=== PATIENT | female | born 1965 | race Caucasian/White ===

== ENCOUNTER 2019-06-08 10:37 | Outpatient (CLI) | payer OTHER, SELFPAY ==
[2019-06-08 17:15] LABS: Basophils Percent Auto 0.4 % (0.2-1.2); Eosinophils Absolute Auto 0.4 K/mm3 (0-0.3); Eosinophils Percent Auto 5.6 % (0-4.4); Hematocrit 47.2 % (37.0-47.0); Hemoglobin 15.1 g/dL (12.0-15.0); Immature Granulocyte Absolute 0.01 K/mm3 (0.00-0.031); Immature Granulocyte Percent A 0.1 % (0-0.5); Lymphocytes Percent Auto 36.1 % (18.3-44.2); Mean Corpuscular Volume 96.9 fl (80-100); Mean Platelet Volume 9.8 fl (7.4-10.4); Monocytes Absolute Auto 0.4 K/mm3 (0.1-0.6); Monocytes Percent Auto 6.3 % (2.6-8.5); Neutrophils Absolute Auto 3.6 K/mm3 (1.3-6.7); Neutrophils Percent Auto 51.5 % (45.5-73.1); Platelet Count Result 293 k/mm3 (150-375); Red Blood Count 4.87 M/mm3 (4.2-5.4); Red Cell Distribution Width 12.5 % (11.5-14.5); White Blood Count 6.9 K/mm3 (4.5-10.0)
== END 2019-06-08 10:38 | disposition home or self-care (01) ==
PROVIDERS: PCP Family Medicine; Visit Provider Family Medicine
DX: Z01.818 Encounter for other preprocedural examination (principal); Z79.899 Other long term (current) drug therapy
CPT/HCPCS: 36415; 85025

== ENCOUNTER 2022-03-12 13:17 | Emergency (ER) | payer OTHER, SELFPAY ==
[2022-03-12 13:33] VITALS: BP 122/75; PULSE 73; RESP 16; TEMP 36.8; O2SAT 99
--- NOTE | 2022-03-12 15:48 | ED.URI ---
HPI - URI/Sore Throat General Chief Complaint: Upper Respiratory Infection Stated Complaint: cold/flu Time Seen by Provider: 03/12/22 15:40 Source: patient, family, RN notes reviewed and old records reviewed Mode of arrival: wheelchair Limitations: no limitations History of Present Illness HPI Narrative: 56 year old female accompanied by spouse presents to express care with complaints of productive cough for the past 10 days of thick yellow phlegm. Patient reports that it feels like she just can't breathe. Patient has long history of tobacco abuse of 1 ppd for the past 30 years. Patient has had previous CVA with right sided weakness.She reports that she has been taking Danii Dysart Plus for her symptoms.Patient reports that she has not had any fevers. MD elicited complaint: cough, rhinorrhea and nasal congestion Pertinent past history: other (tobacco abuse) Onset (ago): day(s) (10) Able to tolerate fluids by mouth: Yes Treatments prior to arrival: cold medicine Related Data Allergies Allergy/AdvReac Type Severity Reaction Status Date / Time hydromorphone Allergy Intermediate rash Verified 03/12/22 14:23 morphine Allergy Intermediate rash Verified 03/12/22 14:23 ibuprofen Allergy Nausea Verified 03/12/22 14:23 naproxen Allergy Nausea Verified 03/12/22 14:23 tramadol Allergy Nausea Verified 03/12/22 14:23 Review of Systems Review of Systems: CONSTITUTIONAL: Denies malaise, chills, sweats, or fever. EYES: Denies visual changes, redness, or discharge. ENT: Reports rhinorrhea, congestion, sinus pain,no otalgia or sore throat. CARDIOVASCULAR: Denies chest pain, palpitations, or edema. RESPIRATORY: Reports cough.? Reports some dyspnea. GASTROINTESTINAL: Denies abdominal pain, nausea, vomiting, diarrhea SKIN: Denies rash or itching. MUSCULOSKELETAL: Denies myalgia. NEUROLOGIC: Denies headache. All systems reviewed & are unremarkable except as noted in HPI and below PMFSH Past Medical History Medical History (Updated 03/13/22 @ 00:00 by Background [place]) Allergies Anxiety Bilateral carpal tunnel syndrome PTSD (post-traumatic stress disorder) RSD (reflex sympathetic dystrophy) Surgical History Surgical History (Updated 10/21/21 @ 14:04 by Agnelito Robles MD) H/O section H/O shoulder surgery History of cholecystectomy Family History Family History Mother Diabetes mellitus Father COPD (chronic obstructive pulmonary disease) Emphysema lung Social History Social History (Updated 10/26/21 @ 07:20 by Hiral Boyd MA) Years smoked: 30 Smoking status: Current every day smoker Alcohol intake: current Drinks per week: 2 Alcohol use details: Yoder Substance use: never Substance use type: does not use Gender identity (if verbalized by the patient): Female Agree to blood products: Yes Comments At time of signature, agree with nursing past medical, surgical, social and family history. There is no relevant family history pertinent to the presenting complaint Exam Narrative: GENERAL:Chronic ill-appearing, well-nourished, and in no acute distress.Right sided weakness post CVA HEAD: Normocephalic EYES: PERRLA, conjunctivae clear ENT: Nares clear, turbinates edematous and erythematous, clear to yellow tinged discharge. Mucous membranes moist. TM pearly valente with dull light reflex bilaterally; no tragal tenderness. Oropharynx erythematous without lesions. Tonsils not enlarged and without exudate, no drooling, no hoarseness, no trismus, uvula midline. NECK: Supple. No lymphadenopathy CHEST: Scattered wheezing on auscultation, breath sounds equal. scattered wheezing,no rhonchi, rales, or stridor. No respiratory distress, speaks in full sentences.productive cough of yellow thick phlegm, SAO2 99% on room air HEART: Regular rate and rhythm. No murmur heard. SKIN: Warm, dry, no rash. NEURO: Alert and oriented x
== END 2022-03-12 16:06 | disposition home or self-care (01) ==
PROVIDERS: Emergency Provider Registered Nurse; PCP Family Medicine
DX: J06.9 Acute upper respiratory infection, unspecified (principal); F17.210 Nicotine dependence, cigarettes, uncomplicated
CPT/HCPCS: 99213; G0463

== ENCOUNTER 2022-08-27 08:50 | Outpatient (CLI) | payer OTHER, SELFPAY ==
--- NOTE | ~2022-08-27 | US_ITS ---
EXAMINATION: US venous doppler LE RT DATE: 08/27/2022 09:33 INDICATION: Right lower limb swelling. Other specified soft tissue disorders. TECHNIQUE: Grayscale ultrasound images without and with compression and Doppler ultrasound images of the right lower extremity veins were obtained. COMPARISON: None. FINDINGS: The visualized portions of right common femoral vein, profunda (deep) femoral vein, femoral vein, pop liteal vein, peroneal veins, posterior tibial veins, and greater saphenous vein outflow are patent. IMPRESSION: 1. No deep venous thrombosis. Reviewed, dictated and finalized at location A.
== END 2022-08-27 08:51 | disposition home or self-care (01) ==
PROVIDERS: PCP Family Medicine; Visit Provider Nurse Practitioner
DX: M79.89 Other specified soft tissue disorders (principal)
CPT/HCPCS: 93971

== ENCOUNTER 2022-10-08 09:10 | Outpatient (CLI) | payer OTHER, SELFPAY ==
--- NOTE | ~2022-10-08 | CT_ITS ---
CT Scan of the Chest without Contrast: Clinical Indication: Lung cancer screening, 40 pack-year smoking history Technique: Contiguous sections were acquired throughout the chest without intravenous contrast. Dose reduction technique was used on this scan by utilizing automated exposure control and iterative recon struction technique. The dose-length product (DLP) was 92.94 mGy-cm. Findings: There is no evidence of any significant mediastinal, hilar or axillary lymphadenopathy. Coronary jason ry calcifications are present. There is no evidence of pleural or pericardial effusion. Severe emphysema present. No pulmonary nodule identified. Images through the upper abdomen reveal no abnormalities. Impression: Lung RADS 1: Negative. 12 month follow-up screening CT advised. Severe emphysema. Reviewed, dictated and finalized at location . Impression: Lung RADS 1: Negative. 12 month follow-up screening CT advised. Severe emphysema.
== END 2022-10-08 09:11 | disposition home or self-care (01) ==
PROVIDERS: PCP Family Medicine; Visit Provider Family Medicine
DX: Z12.2 Encounter for screening for malignant neoplasm of respiratory organs (principal); F17.210 Nicotine dependence, cigarettes, uncomplicated
CPT/HCPCS: 71271

== ENCOUNTER 2022-10-23 17:42 | Emergency (ER) | payer OTHER, SELFPAY ==
--- NOTE | ~2022-10-23 | XR_ITS ---
EXAMINATION: XR knee RT min 4V DATE: 10/23/2022 19:16 INDICATION: Right knee injury. TECHNIQUE: 4 views of right knee were obtained. COMPARISON: None. FINDINGS: Bone alignment is normal. There is a nondisplaced fracture of medial femoral metaphysis. Th ere is mild tricompartmental osteoarthritis characterized by tiny osteophytes. No joint space narrowi ng. There is a large lipohemarthrosis. IMPRESSION: 1. Nondisplaced fracture of medial femoral metaphysis. 2. Large lipohemarthrosis. 3. Mild right knee osteoarthritis. Reviewed, dictated and finalized at location E.
[2022-10-23 18:25] VITALS: BP 111/64; PULSE 86; RESP 18; TEMP 36.1; O2SAT 100
[2022-10-23 20:15] VITALS: BP 107/69; PULSE 93; RESP 16; TEMP 36.6; O2SAT 98
[2022-10-23] MEDS: HYDROcodone/acetaminophen (*CRX) 5-325 MG TABLET 1 TAB PO (20:56)
--- NOTE | 2022-10-23 21:14 | ED_ITS ---
Respiratory Rate 18 10/23/22 18:25 Blood Pressure 111/64 10/23/22 18:25 Pulse Oximetry 100 10/23/22 18:25 Oxygen Delivery Room Air 10/23/22 18:25 Temperature 98 F 10/23/22 20:15 Pulse Rate 93 10/23/22 20:15 Respiratory Rate 16 10/23/22 20:15 Blood Pressure 107/69 10/23/22 20:15 Pulse Oximetry 98 10/23/22 20:15 Oxygen Delivery Room Air 10/23/22 18:25 Procedures Orthopedic Splinting/Casting Injury #1: Splinting/Casting Date: 10/23/22 Side: right Lower Extremity Injury Location: knee Lower Extremity Immobilizer: knee immobilizer Splint: prefabricated Pre-Formed: knee immobilizer Pre-Procedure Neuro Vascular Exam: normal Post-Procedure Neuro Vascular Exam: normal MDM - Extremity Injury (Lower) MDM Narrative Medical decision making narrative: Patient presents to the emergency department for right knee injury sustained just prior to arrival. Patient is neurovascularly intact at her baseline. She does have history of paralysis of this leg due to her previous stroke. Right knee x-ray shows a nondisplaced fracture of the medial femoral metaphysis. Large lipohemarthrosis. Mild right knee osteoarthritis. Spoke with Dr. Liu about patient and workup who will follow up in clinic. Patient will be placed in knee immobilizer. Patient and family updated on work-up and agree with plan of care. She was given warnings to return to the ER Differential Diagnosis Differential diagnosis: Likely acute internal derangement of knee and fracture of femur Imaging Data Radiologist's impression: ITS Impressions Knee X-Ray 10/23/22 19:27 IMPRESSION: 1. Nondisplaced fracture of medial femoral metaphysis. 2. Large lipohemarthrosis. 3. Mild right knee osteoarthritis. Critical Care Time Critical Care Time Critical Care Time: No Discharge Plan Discharge Clinical Impression: Closed right femoral fracture Qualifiers: Encounter type: initial encounter Femur location: distal, unspecified portion Fracture morphology: unspecified fracture morphology Qualified Code(s): S72.401A - Unspecified fracture of lower end of right femur, initial encounter for closed fracture Patient Disposition: Home, Self-Care Condition: Stable Instructions: Leg Fracture (ED) Additional Instructions: Return to the ER if you experience fever, redness and swelling of your extremity, numbness or any other symptoms that are concerning to you Wear knee immobilizer.. No weight on the affected leg. Ice and elevate extremity. Pain medication as needed and directed. Follow up with orthopedics for further care. Prescriptions: New hydrocodone-acetaminophen 5-325 mg tablet 1 tablet PO Q8H PRN (Reason: pain) Qty: 14 0RF No Action albuterol sulfate 90 mcg/actuation HFA aerosol inhaler 2 puff inhalation QID PRN (Reason: shortness of breath or wheezing) Qty: 8.5 0RF doxycycline hyclate 100 mg tablet 100 mg PO BID Qty: 20 0RF prednisone 10 mg tablet 10 mg PO DAILY Qty: 21 0RF Rx Instructions: 6 tabs day 1, 5 tabs day 2. 4 tabs day 3, 3 tabs day 4, 2 tabs day 5, 1 tab day 6 Follow-up/Referrals: Frank Liu MD [Physician] - 3 Days Angelito Robles MD [Primary Care Provider] - HPI - Extremity Injury (Lower) General Chief Complaint: Extremity Injury, Lower Stated Complaint: fa
--- NOTE | 2022-10-23 21:14 | ED.LOWEXIN ---
HPI - Extremity Injury (Lower) General Chief Complaint: Extremity Injury, Lower Stated Complaint: fall - right knee pain Time Seen by Provider: 10/23/22 20:16 Source: patient Mode of arrival: wheelchair Limitations: no limitations History of Present Illness HPI Narrative: This is a 57-year-old female that presents to the emergency department for right knee injury sustained just prior to arrival. Reports history of CVA for which she has residual paralysis on the right. She is not ambulatory. She transfers from wheelchair. Patient was transferring to use the restroom and reports she twisted the right knee. Has had swelling and pain since. Denies new numbness. Related Data Allergies Allergy/AdvReac Type Severity Reaction Status Date / Time hydromorphone Allergy Intermediate rash Verified 08/19/22 13:27 morphine Allergy Intermediate rash Verified 08/19/22 13:27 ibuprofen Allergy Nausea Verified 08/19/22 13:27 naproxen Allergy Nausea Verified 08/19/22 13:27 tramadol Allergy Nausea Verified 08/19/22 13:27 Review of Systems Review of Systems: CONSTITUTIONAL: Denies fever MUSCULOSKELETAL: Reports joint pain, and myalgia. NEUROLOGIC: Denies numbness All systems reviewed & are unremarkable except as noted in HPI and below PMFSH Past Medical History Medical History (Updated 10/23/22 @ 21:22 by Rhonda Juarez PA-C) Allergies Anxiety Bilateral carpal tunnel syndrome CVA (cerebral vascular accident) PTSD (post-traumatic stress disorder) RSD (reflex sympathetic dystrophy) Surgical History Surgical History H/O section H/O shoulder surgery History of cholecystectomy Family History Family History Mother Diabetes mellitus Father COPD (chronic obstructive pulmonary disease) Emphysema lung Social History Social History Years smoked: 30 Smoking status: Current every day smoker Alcohol intake: current Drinks per week: 2 Alcohol use details: Yoder Substance use: never Substance use type: does not use Lack of Transportation: YES Lack of Food: Sometimes True Current Housing: I Have Housing Concerned About Future Housing: No Difficulty Paying Gas/Electric Bills: No Difficulty Paying for Meds: No Currently Unemployed: No Education: High School Diploma/GED Difficulty w/ Childcare or Family Care: No Living arrangements: with friend(s) Gender identity (if verbalized by the patient): Female Agree to blood products: Yes Exam Narrative: GENERAL: Well-appearing, well-nourished, and in no acute distress. HEAD: Normocephalic, atraumatic. EYES: EOMI. EXTREMITIES: Decreased passive ROM in the right knee due to pain. Moderate edema about the right knee anteriorly. Normal DP pulse. Normal sensation SKIN: Warm, dry, no rash. NEURO: No focal deficits. Alert and oriented x3. PSYCH: Normal mood and affect Course Course Emergency Course: Patient and family updated on work-up and agree with plan of care Consultations Consultation #1: Spoke with Dr. Liu about patient and workup who will follow up in clinic. Patient will be placed in knee immobilizer Date: 10/23/22 Vital Signs Vital signs: Vital Signs Temperature 97 F L 10/23/22 18:25 Pulse Rate 86 10/23/22 18:25 Respiratory Rate 18 10/23/22 18:25 Blood Pressure 111/64 10/23/22 18:25 Pulse Oximetry 100 10/23/22 18:25 Oxygen Delivery Room Air 10/23/22 18:25 Temperature 98 F 10/23/22 20:15 Pulse Rate 93 10/23/22 20:15 Respiratory Rate 16 10/23/22 20:15 Blood Pressure 107/69 10/23/22 20:15 Pulse Oximetry 98 10/23/22 20:15 Oxygen Delivery Room Air 10/23/22 18:25 Procedures Orthopedic Splinting/Casting Injury #1: Splinting/Casting Date: 10/23/22 Side: right Lower Extremity I
[2022-10-23 22:11] VITALS: BP 106/85; PULSE 85; RESP 16; TEMP 37; O2SAT 100
== END 2022-10-23 22:12 | disposition home or self-care (01) ==
PROVIDERS: Emergency Provider Physician Assistant; PCP Family Medicine
DX: S72.401A Unspecified fracture of lower end of right femur, initial encounter for closed fracture (principal); Z86.73 Personal history of transient ischemic attack (TIA), and cerebral infarction without residual deficits; F17.210 Nicotine dependence, cigarettes, uncomplicated; X50.9XXA Other and unspecified overexertion or strenuous movements or postures, initial encounter
CPT/HCPCS: 73564; 99284; A9270

== ENCOUNTER 2023-02-10 11:25 | Outpatient (CLI) | payer OTHER, SELFPAY ==
--- NOTE | ~2023-02-10 | XR_ITS ---
XR femur RT min 2V DATE: 02/10/2023 11:46 INDICATION: Right femur fracture TECHNIQUE: AP and lateral views COMPARISON: 10/23/2022 right knee FINDINGS: There is interval healing of subtle nondisplaced distal medial femoral metaphyseal fracture since 10/23/2022. Compression screw and nail are noted in the proximal right femur, providing internal fixation for an old intertrochanteric femoral fracture. Diffuse prominent osteopenia. No recent fracture or dislocation is detected. Right hip and knee joint spaces are well preserved. Normal alignment at the hip and knee joints. IMPRESSION: Status post ORIF right intertrochanteric femoral fracture Healed distal medial femoral metaphyseal fracture Prominent osteopenia Reviewed, dictated and finalized at location L.
== END 2023-02-10 11:26 | disposition home or self-care (01) ==
LOC: ANHBWCIMG 11:26
PROVIDERS: PCP Family Medicine; Visit Provider Nurse Practitioner Adult Health
DX: M85.89 Other specified disorders of bone density and structure, multiple sites (principal); Z98.890 Other specified postprocedural states; S72.91XD Unspecified fracture of right femur, subsequent encounter for closed fracture with routine healing
CPT/HCPCS: 73552

== ENCOUNTER 2024-05-31 09:09 | Outpatient (CLI) | payer OTHER, SELFPAY ==
--- NOTE | ~2024-05-31 | US_ITS ---
US arterial ankle brachial ind INDICATION: Peripheral vascular disease TECHNIQUE: Segmental pressures and plethysmographic and Doppler waveforms of the brachial and lower e xtremity arteries were obtained. COMPARISON: None. FINDINGS: Right and left brachial artery pressures of 141 mm Hg and 140 mm Hg, respectively, are concordant (no rmal difference <= 30 mmHg). There is biphasic flow in the lower extremity arteries. The right ankle-brachial index (MILTON) is 1.03 (normal >= 0.9-1.0). The right great toe-brachial index (TBI) is 0.4 (normal >= 0.60). The left MILTON is 1.01. The left TBI is 0.61. IMPRESSION: 1. Diminished left ankle brachial index measuring 0.4, consistent with peripheral arterial disease. Reviewed, dictated and finalized at location B. S ATTENDANT IMPRESSION: 1. Diminished left ankle brachial index measuring 0.4, consistent with peripher al arterial disease.
--- NOTE | ~2024-05-31 | US_ITS ---
EXAMINATION: US arterial duplex LE DATE: 05/31/2024 10:38 INDICATION: Peripheral vascular disease. TECHNIQUE: Multiple grayscale and Doppler ultrasound images of the lower extremities were obtained. COMPARISON: ABIs 05/31/24 FINDINGS: In the right lower limb, peak systolic velocity is 167 cm/s in common femoral artery, 111 c m/s in profunda femoral artery, 126 cm/s in proximal superficial femoral artery, 118 cm/s in mid supe rficial femoral artery, 101 cm/s in distal superficial femoral artery, 66 cm/s in popliteal artery, 7 0 cm/s in posterior tibial artery, and 34 cm/s in the anterior tibial artery. Peroneal artery is not visualized. In the left lower lobe, peak systolic velocity is 132 cm/s in common femoral artery, 86 cm/s in profu nda femoral artery, 128 cm/s in proximal superficial femoral artery, 102 cm/s in mid superficial femo ral artery, 118 cm/s in distal superficial femoral artery, 76 cm/s in popliteal artery, 52 cm/s in po sterior tibial artery, 59 cm/s in peroneal artery, and 73 cm/s in anterior tibial artery. IMPRESSION: 1. Right peroneal artery not visualized. Otherwise no evidence of significant arterial occlusive dise ase. Reviewed, dictated and finalized at location A. STRAIGHTENER IMPRESSION: 1. Right peroneal artery not visualized. Otherwise no evidence of significant a rterial occlusive disease.
--- OUTSIDE RECORDS SUMMARY | 2024-05-31 09:22 | XMS_ITS | Patient Health Summary ---
Author Organization [facility] Address [address] [place] [address] Care Team Providers Care Director Of Clinical Education Name Role Phone Ronit Baez Fernandez MAS-DELIVERER FOOD Primary Care Provider Note from [facility],non-owned Affiliates and Associated Physician Practices is amultiple site organization consisting of ambulatory clinics and hospital sitesin [place], [place], [place] and [place]. This disclosure is being madepursuant to the Care Everywhere program and may not contain all information available regarding this patient. Last updated 17.[facility] Allergies * Hydromorphone(Vomiting) * Ibuprofen(Nausea and/or Vomiting,Palpitations) -Low Criticality * Morphine(Rash,Swelling) -Medium Criticality * Naproxen(Nausea and/or Vomiting) -Low Criticality Medications * Be aware that medications may not be up to date on this document. Alwaysverify current medications with the patient. * busPIRone (BUSPAR) 30 MG tablet(Started 04/06/2018) * Evening [place] Oil 1000 MG(Started 05/25/2018) Take 1,000 mg by mouth once daily 3 refills remaining * Diclofenac Sodium 1.6 % GEL(Started 05/25/2018) Apply 1 tube to skin 3 times daily as needed 2 refills remaining * ALPRAZolam (XANAX) 0.5 MG tablet(Started 11/21/2018) TK 1 T PO BID PRN 1 refill left * HYDROcodone-acetaminophen (NORCO) 5-325 MG tablet(Started 11/07/2018) TK 1 T PO Q 8 H PRF MODERATE OR MORE SEVERE PAIN Active Problems Problem Noted Date Diagnosed Date Breast cyst, left 05/25/2018 Breast pain, left 05/25/2018 Social History Tobacco Use Types Packs/Day Years Used Date Smoking Tobacco: Every Day Cigarettes 2 30 Smokeless Tobacco: Never Tobacco Cessation:Ready to Q uit: No; Counseling Given: No Alcohol Use Standard Drinks/Week Comments Yes 6 (1 standard drink = 0.6 oz pur e alcohol) Sex and Gender Information Value Date Recorded Sex Assigned at Not on file Gender Identity Not on file Sexual Orientation Not on file Last Filed Vital Signs Vital Sign Reading Time Taken Comments Blood Pressure 137/80 01/01/2019 1:21 PM CDT Pulse 77 01/01/2019 1:21 PM CDT Temperature 36.9 C (98.4 F) 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 Respiratory Rate - - Oxygen Saturation 97% 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 Inhaled Oxygen Concentration - - Weight 80.7 kg (178 lb) 01/01/2019 1:21 PM CDT Height 160 cm (5' 3 ) 01/01/2019 1:21 PM CDT Body Mass Index 31.53 01/01/2019 1:21 PM CDT Procedures * MRI CERVICAL SPINE WO CONTRAST(Performed 02/02/2019) Performed for Numbness and tingling of right upper extremity, Numbness and tingling of left lower extremity, Numbness and tingling of left upper extremity Results * MRI CERVICAL SPINE WO CONTRAST (02/02/2019 2:50 PM CDT) Anatomical Region Laterality Modality Pelvis Magnetic Resonan ce 02/02/2019 3:03 PM CDT Impressions 02/02/2019 11:00 PM CDT IMPRESSION: 1. Negative for cord abnormality or neural impingement. 2. Straightening of the cervical spine. 3. Mild degenerative disc disease and tiny central posterior disc protrusion at C6-C7 and C7-T1. I, Dr. TERRENCE CONLEY have personally reviewed and interpreted this examination/study. This report was electronically signed by TERRENCE CONLEY on 02/02/2019 11:00 PM . Narrative 02/02/2019 11:00 PM CDT EXAMINATION: MRI OF THE CERVICAL SPINE WITHOUT CONTRAST HISTORY: 53-year-old woman with upper extremity numbness and tingling TECHNIQUE: MRI of the cervical spine was performed without contrast according to standard protocol. COMPARISON: No prior study is available for comparison. FINDINGS: There is straightening of the cervical spine. Vertebral bodies are normal in height without evidence of compression fractures. Marrow signal intensity is normal. The craniocervical junction and visualized portions of the posterior fossa appear normal. The spinal cord appears normal. The anterior and posterior longitudinal ligaments as well as the posterior ligamentous complex appear intact. Normal flow voids are identified in the vertebral arteries and common carotid arteries. The soft tissues of the neck are unremarkable. There is mild disc height loss at C6-C7 and C7-T1 levels suggestive of mild degenerative disc disease. No evidence of posterior disc herniation or significant posterior disc bulging is identified in the cervical spine except for tiny central posterior protrusion of C6-C7 and C7-T1 discs without causing central canal stenosis. There is no evidence of neural foraminal stenosis or neural impingement, throughout. Mild osteoarthritis of the facets and uncovertebral joints are present at most levels without associated significant osseous hypertrophy or spurring. Procedure Note Terrence Conley MD - 02/02/2019 EXAMINATION: MRI OF THE CERVICAL SPINE WITHOUT CONTRAST HISTORY: 53-year-old woman with upper extremity numbness and tingling TECHNIQUE: MRI of the cervical spine was performed without contrast according to standard protocol. COMPARISON: No prior study is available for comparison. FINDINGS: There is straightening of the cervical spine. Vertebral bodies arenormal in height without evidence of compression fractures. Marrow signal intensity is normal. The craniocervical junction and visualized portions of the posterior fossa appear normal. The spinal cord appears normal.The anterior and posterior longitudinal ligaments as well as the posterior ligamentous complex appear intact. Normal flow voids are identified inthe vertebral arteries and common carotid arteries. The soft tissues of the neck are unremarkable. There is mild disc height loss at C6-C7 and C7-T1 levels suggestive of mild degenerative disc disease. No evidence of posterior disc herniation or significant posterior disc bulging is identified in the cervicalspine except for tiny central posterior protrusion of C6-C7 and C7-T1 discs without causing central canal stenosis. There is no evidence of neural foraminal stenosis or neural impingement, throughout. Mildosteoarthritis of the facets and uncovertebral joints are present at most levelswithout associated significant osseous hypertrophy or spurring. IMPRESSION: 1. Negative for cord abnormality or neural impingement. 2. Straightening of the cervical spine. 3. Mild degenerative disc disease and tiny central posterior disc protrusion at C6-C7 and C7-T1. I, Dr. TERRENCE CONLEY have personally reviewed and interpreted this examination/study. This report was electronically signed by TERRENCE CONLEY on 02/02/201911:00 PM . Quincy Holbrook MD MR ORDERABLES Care Teams Director Of Clinical Education Relationship Specialty Start Date End Date Ronit Baez, SHANK THREADER-DELIVERER FOOD [address] [facility] [address] [place] [address] [phone] PCP - General 01/01/19
--- OUTSIDE RECORDS SUMMARY | 2024-05-31 09:22 | XMS_ITS | Clinical Summary ---
Author Organization [facility] Address [address] [place] [place] [address] Care Team Providers Care Step Down Nurse Name Role Phone Ronit Baez CHACE-FRAME CLEANER Primary Care Provider Source Comments [facility],non-owned Affiliates and Associated Physician Practices is amultiple site organization consisting of ambulatory clinics and hospital sitesin [place], [place], [place] and [place]. This disclosure is being madepursuant to the Care Everywhere program and may not contain all information available regarding this patient. Last updated 17.[facility] Allergies Active Allergy Reactions Criticality Noted Date Comments Hydromorphone Vomiting 01/01/2019 Ibuprofen Nausea and/or Vomiting,Palpitations Low 08/21/2015 Stomach pain Morphine Rash,Swelling Medium 08/21/2015 IV morphine caused rash and swelling in arm Naproxen Nausea and/or Vomiting Low 08/21/2015 Stomach pain Medications * Be aware that medications may not be up to date on this document. Alwaysverify current medications with the patient. 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 Respiratory Rate - - Oxygen Saturation 97% 05/25/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 RADIATOR 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 Inhaled Oxygen Concentration - - Weight 80.7 kg (178 lb) 01/01/2019 1:21 PM CDT Height 160 cm (5' 3 ) 01/01/2019 1:21 PM CDT Body Mass Index 31.53 01/01/2019 1:21 PM CDT Plan of Treatment Health Maintenance Due Date Last Done Comments COLOGUARD (AGES 45-75) - COL ON CA SCREENING 1965 COLON MONITORING 1965 COLONOSCOPY - COLON CA SCREENING 1965 CT COLONOGRAPHY - COLON CA SCREENING 1965 Colorectal Cancer Screening 1965 FIT - COLON CA SCREENING 1965 FLEX SIG - COLON CA SCREENING 1965 LIPID TESTING 1965 MAMMOGRAM 1965 PAP SMEAR 1965 HIV SCREENING 1980 HEPATITIS C SCREENING 05/01/1983 DTAP/TDAP/TD VACCINES (1 - Tdap) 1984 HEPATITIS B VACCINE (1 of 3 - 19+ 3-dose series) 1984 PNEUMOCOCCAL VACCINE 50+ (1 of 2 - PCV) 1984 PNEUMOCOCCAL VACCINE (1 of 2 - PCV) 1984 ZOSTER VACCINE (1 of 2) 2015 SCREENING FOR DIABETES 05/25/2018 COVID-19 VACCINE (2023-2 5 season) 2023 INFLUENZA VACCINE (#1) 2023 DEPRESSION SCREENING 04/11/2024 HIB VACCINE Aged Out No longer eligi ble based on patient's age to complete this topic HPV VACCINE Aged Out No longer eligi ble based on patient's age to complete this topic MENINGOCOCCAL (Group B) VACCINE Aged Out No longer eligible based on patient's age to complete this topic MENINGOCOCCAL VACCINE Aged Out No momo marcel eligible based on patient's age to complete this topic Care Teams Step Down Nurse Relationship Specialty Start Date End Date Ronit Baez, WINDOW MAKER-FRAME CLEANER [address] [facility] [address] [place] [address] [phone] PCP - General 01/01/19
--- OUTSIDE RECORDS SUMMARY | 2024-05-31 09:22 | XMS_ITS ---
Care Plan - [facility] Created on: May 31, 2024 DELIA FLORES : 1965 Sex: Female Author Organization [facility] Address [address] [place] [address] Phone Care Team Providers Care Parts Sales Manager Name Role Phone YAA PRASAD, MARIAM Reinoso
--- OUTSIDE RECORDS SUMMARY | 2024-05-31 09:22 | XMS_ITS | Referral Summary ---
Author Organization [facility] Lore Address [address] [place] [address] Care Team Providers Care Chef Head Name Role Phone Ronit Baez CHACE-FORESTRY CONTRACTOR Primary Care Provider Source Comments [facility],non-owned Affiliates and Associated Physician Practices is amultiple site organization consisting of ambulatory clinics and hospital sitesin [place], [place], [place] and [place]. This disclosure is being madepursuant to the Care Everywhere program and may not contain all information available regarding this patient. Last updated 17.[facility] Allergies Active Allergy Reactions Criticality Noted Date [...] (BUSPAR) 30 MG tablet 04/06/2018 Active Evening Vale Oil 1000 MG Take 1,000 mg by [...] 36.9 C (98.4 F) 05/25/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 LEGAL OPERATIONS MANAGER Respiratory Rate - - Oxygen Saturation 97% 05/25/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 LEGAL OPERATIONS MANAGER Inhaled Oxygen Concentration - - Weight 80.7 kg (178 lb) 01/01/2019 1:21 PM CDT Height 160 cm (5' 3 ) 01/01/2019 1:21 PM CDT Body Mass Index 31.53 01/01/2019 1:21 PM CDT Plan of Treatment Not on file Care Teams Chef Head Relationship Specialty Start Date End Date Ronit Baez, LAUNDRY MACHINE MECHANIC-FORESTRY CONTRACTOR [address] [facility] [address] [place] [place] [address] [phone] PCP - General 01/01/19
--- OUTSIDE RECORDS SUMMARY | 2024-05-31 09:22 | XMS_ITS | Data Portability ---
Author Organization [facility], Main Office Address [address] [place] [address] Assessment Encounter Date Assessment Date Assessment LastModified by Organization Details LastModified Time 07/21/2023 07/21/2023 cont soaks and local wound care [email or web address] Not available 07/21/2023 14:49:27 07/29/2023 07/29/2023 onychomycosis, incurvated nails adonis hallux akachigian Not available 08/01/2023 10:52:15 08/26/2023 08/26/2023 emily mena'ed -- referred pt to Dr. Hassan for HD surgery arthroplasty Rt 2nd akachigian Not available 08/26/2023 12:38:53 09/19/2023 09/19/2023 This note is dictated and transcribed by [employer]. Rn Angiography variances may occur. Despite proofreading, typographical errors may occur. Occasional wrong-word or 'oqunj-p-[id number]' substitutions may have occurred due to the inherent limitations of voice recording. Read the chart carefully and recognize, using context, where substitutions have occurred. [email or web address] Not available 09/19/2023 12:15:55 Plan of Treatment Reminders Order Date Submit Date Provider Last Modified By Organization Details Last Modified Time Details Appointments Establish ed Patient 15 2024 02:00P Srinivasa Hassan DPM Not available Not available Not available Lab None recorded. Referral podiatris t referral - surgical eval for rt hammer toe 2023 024 [email or web address] Jersey HOLMANM, [address] [facility], [facility] [address], [place], [address], 10/03/2023 09:33:54 Procedures None recorded. Surgeries None recorded. Imaging US, duplex, arterial, lower extremity , complete 2023 024 [email or web address] [facility], [address], [place], [address], 11/16/2023 08:43:26 XR, foot, 3 or more view 2023 024 [email or web address] [facility] [place], [address], [place], [address], 09/19/2023 14:06:56 Medication Orders ketoconaz ole 2 % topical cream 2023 024 [facility] [place], [facility] [address], [place], [address], 09/19/2023 12:30:33 Patient TargetsNo targets recorded. Patient Instructions Encounter Date Encounter Id Patient Instructions Last Modified By Organization Details Last Modified Time 09/19/2023 [id number] ([place]ILTON) ankle brachial index* - both leg, NO AUTH REQ [email or web address] Not available 11/16/2023 08:43:00 Reason for Referral Facilities Painter Referral for Pain in right foot surgical eval for rt hammer toe Referring Physician: Oswaldo Meléndez Podiatry, Encounter Date: 08/26/2023 Results Created Date Observation Date Name Description Value Unit Range Abnormal Flag Note LastModifiedBy Organization Detail LastModifiedTime 09/19/19 24 XR, foot, 3 or more view No observ ation record ed. [email or web address] [facility] [place] [address], [place], [address], 09/19/2023 12:15:53 Result Notes None recorded. Problems Name Problem SNOMED Code Status Onset Date Resolution Date Notes Provider Name and Address Organization Details Recorded Time Onychomycos is of toenails 703502635 Active 2023 Oswaldo Meléndez DPM [address], [place], [address] , [place] [facility] 4 10:29:16 Neuropathy 052511279 Active 2023 Oswaldo Meléndez DPM [address], [place], [address], [facility] [employer] [facility] 4 10:29:36 Paronychia of toe of right foot 5690673430075 9102 Active 2023 LUIZ Dickens null, [facility] [employer] [facility] 4 11:52:35 Pain in right foot 1495234927687 07 Active 2023 Oswaldo Meléndez DPM [address], [place], [address], [facility] [employer] [facility] [employer] 4 12:16:29 Pain in left foot 1105419095017 07 Active 2023 Oswaldo Meléndez DPM [address], [place], [address], [facility] [employer] [facility] [employer] 4 10:52:01 Acquired right mallet toe 3337194710454 9109 Active 2023 Jersey Hassan DPM [address], [place], [address], [facility] [employer] [facility] [employer] [facility] 4 12:15:40 Pain of toe of right foot 4558841564589 01 Active 2023 Jersey Hassan DPM [address], [place], [address], [facility] [employer] [facility] [email or web address] 4 12:15:45 Cigarette smoker 03290303 Active 2023 Jersey Hassan DPM [address], [place], [address], [facility] [employer] [facility] [employer] 4 12:16:09 Peripheral vascular disease 170290392 Active 2023 Jersey Hassan DPM [address], [place], [address], [facility] [employer] [facility] [employer] [facility] 4 12:16:18 Tinea pedis 1602415 Active 2023 Jersey Hassan DPM [address], [place], [address], [employer] [facility] [employer] [facility] 4 12:30:15 History of cerebrovasc ular accident 787134432 Active 2023 Jersey Hassan DPM [address], [place], [address], [employer] [facility] [employer] [facility] 4 14:05:30 Edema of lower extremity 491703354 Active 2023 Oswaldo Meléndez DPM [address], [place], [address], [employer] [facility] [employer] [facility] 4 11:20:51 Problem Notes None recorded. Procedures Surgical History Date Name Laterality Status Provider Name and Address Organization Details Recorded Time 09/30/19 24 Nail Debridement completed Oswaldo Meléndez DPM [address], [place], [address], [employer] [facility] [employer] [facility] 09/30/2023 11:20:17 09/30/19 24 Unna boot - LE edema completed Oswaldo Meléndez DPM [address], [place], [address], [facility] [employer] [facility] [employer] [facility] 09/30/2023 11:21:30 07/29/19 24 Nail Debridement completed JAX Gonsales [address], [place], [address], [employer] [facility] [employer] [facility] 08/01/2023 10:51:45 07/14/19 24 Total Nail Avulsion with Phenol Matrixectomy completed Oswaldo Meléndez DPM [address], [place], [address], [facility] [employer] [facility] [employer] [facility] 07/14/2023 12:15:37 Imaging Results Imaging Date Name Status LastModified by Organiz ation Details LastModified Time 09/19/2023 XR, foot, 3 or more view completed katiana [facility] [place] [address], [place], [address], 09/19/2023 12:15:53 Procedure Notes None recorded. Medical Equipment None Reported. Allergies No known drug allergies Medications Name Sig Start Date Stop Date Status Note LastModified by Organization Details LastModified Time silver sulfadiazine 1 % topical cream APPLY A 1/16 INCH (1.5 MM) THICK LAYER TO ENTIRE BURN AREA BY TOPICALROUT E 2 TIMES PER DAY active Not Available Not Available No t Available hydrocodone 5 mg-acetamino phen 325 mg tablet active Not Available Not Available Not Available tramadol 50 mg tablet active Not Available Not Available No t Available ketoconazole 2 % topical cream APPLY TO THE AFFECTED AREA(S) foot rash BY TOPICAL ROUTE ONCE DAILY active Not Available Not Available No t Available Vitals Date Recorded Body height Body mass index (BMI) Body weight Oxygen saturation Oxygen saturation in Arterial blood by Pulse oximetry Body temperature Heart rate Provider Name and Address Organization Details Last Updated DateTime 4 160.02 cm 31.9 kg/m2 47683.6 3 g 97 % 97 % 98.6 [degF] 80 /min Jl Waite John [facility] 4 12:18:03 Date Recorded Body height Body mass index (BMI) Body weight Oxygen saturation Oxygen saturation in Arterial blood by Pulse oximetry Body temperature Heart rate Provider Name and Address Organization Details Last Updated DateTime 4 160.02 cm 31.9 kg/m2 18404.6 3 g 98 % 98 % 97.8 [degF] 77 /min Jl Waite John [facility] [employer] [facility] 4 10:56:57 Date Recorded Body height Body mass index (BMI) Body weight Oxygen saturation Oxygen saturation in Arterial blood by Pulse oximetry Body temperature Heart rate Provider Name and Address Organization Details Last Updated DateTime 4 160.02 cm 31.9 kg/m2 70898.6 3 g 97 % 97 % 98.2 [degF] 70 /min Jl Waite John [facility] [employer] [facility] 4 10:55:24 Date Recorded Body height Body mass index (BMI) Body weight Oxygen saturation Oxygen saturation in Arterial blood by Pulse oximetry Body temperature Heart rate Provider Name and Address Organization Details Last Updated DateTime 4 160.02 cm 31.9 kg/m2 84332.6 3 g 98 % 98 % 97.9 [degF] 74 /min LUIZ Dickens [employer] [facility] 4 10:49:46 Social History Question Answer Notes LastModified by Organizat ion Details LastModified Time Tobacco Smoking Status Never Smoker LUIZ Dickens null, [facility] 07/08/2023 15:39:01 What Is Your Level Of Alcohol Consumption? Occasional Information not available 07/08/2023 What Is Your Level Of Caffeine Consumption? None Information not available 07/08/2023 What Was The Date Of Your Most Recent Tobacco Screening? 09/30/2023 [email or web address] Information not available 09/30/2023 Have You Ever Been Counseled For Unhealthy Alcohol Use? No [email or web address] Information not available 08/26/2023 Do You Use Any Illicit Or Recreational Drugs? No [email or web address] Information not available 07/08/2023 Sex: Unknown Functional Status None recorded. Mental Status None recorded. Family History Relationship Description Onset Age of this Age Resolved Age Notes LastModified by Organization Details LastModified Time Mother Diabetes mellitus [email or web address] Not available 2023 15:39:26 Mother Hypertensive disorder [email or web address] Not available 2023 15:39:34 Unspecified Relation Arthritis [email or web address] Not available 07/07 15:39:48 Medical History Condition Response HYPERTENSION Y STROKE/TIA Y Gynecological HistoryNo gynecological history recorded. Obstetrics History GPAL:G 0 P 0 0 0 0 Past Encounters Encounter ID Performer Location Encounter Start Date Encounter Closed Date Diagnosis/Indication Diagnosis SNOMED-CT Code Diagnosis ICD10 Code Diagnosis Note [id number] Oswaldo Meléndez DPM [facility] [address] [address] 07/08/2023 15:33:49 11/15/2023 08:43:39 Onychomycosis of toenails 627116079 B35.1 [facility] 010453011 G62 .9 [id number] Oswaldo Meléndez DPM [facility] [place] [address] [place] [address] 07/14/2023 10:38:14 07/14/2023 14:22:19 Paronychia of toe of right foot 6874290935 3677790 L03.031 Pain in right foot 66828 96046 43818 M79.830 [id number] Oswaldo Meléndez DPM [facility] [place] [address] [place] [address] 07/21/2023 12:15:04 07/21/2023 15:25:55 [id number] Oswaldo Meléndez DPM [facility] [place] [address] [place] [address] 07/29/2023 10:55:21 11/15/2023 10:22:41 Pain in right foot 3676972121 72916 M79.671 Pain in left foot 673586 9582 16153 M79.262 [id number] Oswaldo Meléndez DPM [facility] [place] [address] [address] [address] 08/26/2023 10:45:53 08/26/2023 14:22:59 Pain in right foot 5536970346 60593 M79.671 [id number] Jersey Hassan DPM [facility] [place] [address] [place] [address] 09/19/2023 11:08:19 09/20/2023 11:28:07 History of cerebrovascular accident 127912624 Z86.73 3 yr ago- affect right side Acquired r ight mallet toe 5384018989 4509209 M20.5X1 right 2nd toeX-rays reviewed with the patientTre atment options reviewedCo ntinue conservati ve management at this time Pain of to e of right foot 5649433182 24899 M79.674 numb right legwheelch air today-- continued Cigarette smoker 0761984 7 F17.210 recommend discontinu e smoking Peripheral vascular disease 276615850 I73.9 obtain testing to ensure adequate healingsec ondary to history of smoking Tinea pedis 4673791 B35. 3 right foot [id number] Oswaldo Meléndez DPM [facility] [address] [facility] [address] [place] [address] 09/30/2023 10:36:12 09/30/2023 11:45:11 Pain in right foot 7411514720 35975 M79.671 Edema of l ower extremity 501661532 R60.0 rt leg and foot swollen 3-plus non-pittin g edema Health Concerns Section Related Observation LastModified by Organization Detai ls LastModified Time None Recorded Concern Status LastModified by Organization Details LastModified Time None Recorded Advance Directives Directive None Recorded Payers Encounter Date Sequence Insurance Name Policy Number Policy Mercedes Covered Member ID Mercedes Member ID Guarantor Name 07/21/2023 2 [facility] (MEDICARE REPLACEMENT/ ADVANTAGE - HMO) Blanquita Friend [id number] Blanquita Friend 07/29/2023 2 [facility] (MEDICARE REPLACEMENT/ ADVANTAGE - HMO) Blanquita Friend [id number] Blanquita Friend 08/26/2023 2 [facility] (MEDICARE REPLACEMENT/ ADVANTAGE - HMO) Blanquita Friend [id number] Blanquita Friend 09/19/2023 2 [facility] (MEDICARE REPLACEMENT/ ADVANTAGE - HMO) Blanquita Friend [id number] Blanquita Friend 09/30/2023 2 [facility] (MEDICARE REPLACEMENT/ ADVANTAGE - HMO) Blanquita Friend [id number] Blanquita Friend Notes Date Note Type Note Provider Name and Address Organization Details Recorded Time 07/21/2023 text/html Pt RTC for c/o P and A's s/p one wk. 2 and 5 [address] Oswaldo Meléndez DPM [address], [place], [address], [facility] [email or web address] 07/21/2023 14:49:31 07/29/2023 text/html Pt RTC for c/o nail matrixectomies, 2 and 5 Rt foot. Oswaldo Meléndez DPM [address], [place], [address], [facility] [employer] [facility] [employer] [facility] 08/01/2023 10:52:20 08/26/2023 text/html Hammertoe, Rt foot, contracture has progressed and the toe is now painful in shoes. Closed toe shoes are the worst. Oswaldo Meléndez DPM [address], [place], [address], [employer] [facility] [employer] [facility] 08/26/2023 12:38:58 09/19/2023 text/html . Patient is a 58-year-old female who presents the office with complaints right 2nd toe pain. Patient has history stroke 3 years ago. Patient is currently in a wheelchair she has limited mobility of the right lower extremity secondary to the stroke. Patient has foot drop secondary. Patient denies any open wounds or infection. Patient states that she also has noticed a rash to the right foot she denies any treatment for this. Patient is also a long-term smoker she states that she currently smokes a pack a day. Patient denies any other pedal complaints. Jersey Hassan DPM [address], [place], [address], [facility] [employer] [facility] 09/19/2023 14:06:27 09/30/2023 text/html Pt c/o swelling and pain, Rt foot and lower leg. Long thick incurvated nails painful adonis. Oswaldo Meléndez DPM [address], [place], [address], [facility] [employer] [facility] [employer] [facility] 09/30/2023 11:21:35 OBGyn Episode No OBEpisode recorded.
--- OUTSIDE RECORDS SUMMARY | 2024-05-31 09:23 | XMS_ITS | Clinical Summary ---
Author Organization [facility] Address [address] [place] [address] Phone Care Team Providers Care Special Forces Communications Sergeant Name Role Phone MARIAM MON MD Unavailable Unavailable Reason for Visit and Chief Complaint PAIN MANAGEMENT FOLLOW UP Plan of Treatment No Plan of Treatment Recorded Assessments Includes: Assessments from this encounter No Assessments Recorded Medical Equipment - Implanted Devices Includes: Current Devices No Medical Equipment Recorded Medications Includes: Medications discussed during this encounter and other current Medications Current Medications (continue as prescribed) Naltrexone 3MG Oral Tablet 09/26/2018 Provider: Bronwyn MILLER Diagnosis: Complex regional pain syndrome I of left lower limb 1 po q AM Last Documented On 9 9:48AM By VICTORINA MILLER ; [facility] Naltrexone 4.5MG Oral Tablet 09/26/2018 Provider: VICTORINA BURKS Diagnosis: Complex regional pain syndrome I of left lower limb 1 po q AM Last Documented On 9 9:48AM By VICTORINA MILLER ; [facility] LORazepam 0.5MG Oral Tablet 08/01/2018 Provider: Diagnosis: Last Documented On 08/01/2018 8:51AM By Alicia Domínguez CMA ; [facility] Naltrexone 1.5MG Oral Tablet 08/01/2018 Provider: VICTORINA BURKS Diagnosis: Complex regional pain syndrome I of left lower limb One tablet daily Last Documented On 9 9:23AM By VICTORINA MILLER ; [facility] Medications Administered Includes: Administered Medications from this encounter No Administered Medications Recorded Results Includes: Results discussed during this encounter No Results Recorded For Specified Dates History of Present Illness Includes: History of Present Illness from this encounter No History of Present Illness Recorded Social History No Social History Recorded - Smoking Status Unknown Medical History Includes: Medical History addressed during this encounter No Medical History Recorded Family History Includes: Family History addressed during this encounter No Family History Recorded Review of Systems Includes: Review of Systems from this encounter No Review of Systems Recorded Mental Status Includes: Mental Status from this encounter No Mental Status Recorded Functional Status Includes: Functional Status from this encounter No Functional Status Recorded Physical Exam Includes: Physical Exam from this encounter No Physical Exam Recorded Allergies Includes: Active Allergies Substance Type Reaction Onset Date Resolved Date Statu s Morphine Sulfate Allergy Skin Rashes / E ruption of skin 02/15/2018 Active Last Documented On 9 9:37AM ; [facility] Dilaudid Allergy 02/15/2018 Active Last Documented On 9 9:37AM ; [facility] Insurance Includes: Active Insurance Policies Plan Name Member ID Group # Subscriber Relationship Effect destinee Dates - [facility] [id number] DELIA FLORES Self Clinical Notes Includes: Clinical Notes from this encounter No Clinical Notes Recorded
--- OUTSIDE RECORDS SUMMARY | 2024-05-31 09:23 | XMS_ITS | Clinical Summary ---
Author Organization [facility] Address [address] [place] [address] Phone Care Team Providers Care Metal Container Maker Name Role Phone MARIAM MON MD Unavailable [...] On 9 9:48AM By VICTORINA MILLER ; [facility] Naltrexone 4.5MG Oral Tablet 09/26/2018 Provider: VICTORINA BURKS Diagnosis: Complex regional pain syndrome I of left lower limb 1 po q AM Last Documented On 9 9:48AM By VICTORINA MILLER ; [facility] LORazepam 0.5MG Oral Tablet 08/01/2018 Provider: Diagnosis: Last Documented On 08/01/2018 8:51AM By Alicia Domínguez CMA ; [facility] Naltrexone 1.5MG Oral Tablet 08/01/2018 Provider: VICTORINA BURKS Diagnosis: Complex regional pain syndrome I of left lower limb One tablet daily Last Documented On 9 9:23AM By VICTORINA MILLER ; [facility] Medications Administered Includes: Administered Medications [...] Active Last Documented On 9 9:37AM ; [facility] Dilaudid Allergy 02/15/2018 Active Last Documented On 9 9:37AM ; [facility] Insurance Includes: Active Insurance Policies Plan Name Member ID Group # Subscriber Relationship Effect destinee Dates - [facility] [id number] DELIA FLORES Self Clinical Notes Includes: Clinical Notes from this encounter No Clinical Notes Recorded
--- OUTSIDE RECORDS SUMMARY | 2024-05-31 09:23 | XMS_ITS | Clinical Summary ---
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, unspecified] - Last Documented On 09/26/2018 9:53AM ; [facility] - Complex regional pain syndrome type I of the left lower limb [G90.522 - Complex regional pain syndrome I of left lower limb] - Last Documented On 09/26/2018 9:53AM ; [facility] - Chronic pain due to trauma [G89.21 - Chronic pain due to trauma] - Last Documented On 09/26/2018 9:53AM ; [facility] Medical Equipment - Implanted Devices Includes: Current Devices No Medical Equipment Recorded Medications Includes: Medications discussed during this encounter and other current Medications New / Renewed during this visit VICTORINA MILLER on 09/26/2018 Naltrexone 3MG Oral Tablet Provider: Bronwyn MILLER 30 day supply: 30 tablet, 0 refills Diagnosis: Complex regional pain syndrome I of left lower limb 1 po q AM Last Documented On 9 9:48AM By VICTORINA MILLER ; [facility] Naltrexone 4.5MG Oral Tablet Provider: VICTORINA BURKS 30 day supply: 30 tablet, 2 refills Diagnosis: Complex regional pain syndrome I of left lower limb 1 po q AM Last Documented On 9 9:48AM By VICTORINA MILLER ; [facility] Current Medications (continue as prescribed) LORazepam 0.5MG Oral Tablet 08/01/2018 Provider: Diagnosis: Last Documented On 08/01/2018 8:51AM By Alicia Domínguez CMA ; [facility] Naltrexone 1.5MG Oral Tablet 08/01/2018 Provider: VICTORINA BURKS Diagnosis: Complex regional pain syndrome I of left lower limb One tablet daily Last Documented On 9 9:23AM By VICTORINA MILLER ; [facility] Medications Administered Includes: Administered Medications from this encounter No Administered Medications Recorded Vital Signs Includes: Vital Signs from this encounter Vital Name 09/26/2018 09:38A Blood Pressure Sitting L 120/72 BP Cuff Size Regular Pulse Rate-Sitting (bpm) 76 Respiration Rate (breaths/min) 20 Height (in) 63 Weight (lb) 172 Body Mass Index (kg/m2) 30.5 Body Surface Area (m2) 1.8 Pain Level 9 Oxygen Saturation (%) 98 Last Documented: On 09/26/2018 9:39AM ; [facility] Results Includes: Results discussed during this encounter No Results Recorded For Specified Dates History of Present Illness Includes: History of Present Illness from this encounter FRANDY FLORES is a 53 year old female. Patient presents in follow up to after starting low dose naltrexone for CRPS of left lower extremity. She felt it was helping, but feels it is not as helpful now. She did have some trauma to the left leg so pain increased then. Gabapentin caused seizure activity and was stopped. NSAIDS cause severe GI irritation. Tylenol helps minimally. - Medication list reviewed with patient - Prescription Drug Monitoring Program website checked. - Last dose of medication? 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 Last Documented On 9 9:37AM ; [facility] Using marijuana 02/15/2018 Last Documented On 9 9:37AM ; [facility] Alcohol 6-12 a month 02/15/2018 Last Documented On 9 9:37AM ; [facility] 02/15/2018 Last Documented On 9 9:37AM ; [facility] Smoking status : Current everyday smoker 02/15/2018 Last Documented On 9 9:37AM ; [facility] Medical History Includes: Medical History addressed during this encounter No Medical History Recorded Family History Includes: Family History addressed during this encounter No Family History Recorded Review of Systems Includes: Review of Systems from this encounter Systemic: Feeling tired (fatigue). Head: Headache. Breasts: Breast lump and pain in breast. Cardiovascular: Cold hands or feet. Genitourinary: Increased urinary frequency, initiating urination requires straining, urinary loss of control, and irregular menstrual bleeding. Endocrine: Muscle weakness. Musculoskeletal: Back pain, muscle aches, pain localized to one or more joints, and joint swelling localized to one or more joints. Neurological: Numbness. Psychological: Feeling nervous, depression, and insomnia. Mental Status Includes: Mental Status from this encounter Description Oriented to time, place, and person Functional Status Includes: Functional Status from this encounter No Functional Status Recorded Physical Exam Includes: Physical Exam from this encounter Allergies Includes: Active Allergies Substance Type Reaction Onset Date Resolved Date Statu s Morphine Sulfate Allergy Skin Rashes / E ruption of skin 02/15/2018 Active Last Documented On 9 9:37AM ; [facility] Dilaudid Allergy 02/15/2018 Active Last Documented On 9 9:37AM ; [facility] Encounters Encounter Provider Location Date Check-In Time Check-Out Time Diagnosis PAIN MANAGEMENT FOLLOW UP VICTORINA TUCKER [facility]- 09/27/19 19 9:28AM 9:52AM Complex Regional Pain Syndrome Type I Lower Limb Left,Chronic Pain Due To Trauma,Neural macy Atypical Insurance Includes: Active Insurance Policies Plan Name Member ID Group # Subscriber Relationship Effect destinee Dates - [facility] [id number] DELIA FLORES Self Clinical Notes Includes: Clinical Notes from this encounter No Clinical Notes Recorded
--- OUTSIDE RECORDS SUMMARY | 2024-05-31 09:23 | XMS_ITS ---
Author Organization [facility] Address [address] [place] [address] Phone Care Team Providers Care Electronic Development Technician Name Role Phone YAA PRASAD, MARIAM Reinoso Unavailable Plan of Treatment Referrals To Diagnosis Pain Management [address] [address] - Complex regional pain syndrome I of left lower limb Note: consent lumbar sympath etic nerve block Last Documented On 9 8:22AM ; [facility] Pain Management [address] [address] - Complex regional pain syndrome I of left lower limb Note: consent for lumbar sym pathetic nerve blockDr oviedo Last Documented On 9 4:15PM ; [facility] Assessments Includes: Assessments for all patient encounters Findings Encounter Date Atypical neuralgia PAIN MANAGEMENT FOLLOW UP wit roel VICTORINA FUENTES-BC 09/26/2018 Last Documented On 9 9:53AM ; [facility] Chronic pain due to trauma PAIN MANAGEME NT FOLLOW UP with VICTORINA TUCKER ANP-[facility] 09/26/2018 Last Documented On 9 9:53AM ; [facility] Complex regional pain syndro me type I of the left lower limb PAIN MANAGEMENT FOLLOW UP with VICTORINA TUCKER ANP-BC 09/26/2018 Last Documented On 9 9:53AM ; [facility] Atypical neuralgia PAIN MANAGEMENT FOLLOW UP wit roel VICTORINA FUENTES-BC 08/01/2018 Last Documented On 9 9:23AM ; [facility] Chronic pain due to trauma PAIN MANAGEME NT FOLLOW UP with VICTORINA MILLER 08/01/2018 Last Documented On 9 9:23AM ; [facility] Complex regional pain syndro me type I of the left lower limb PAIN MANAGEMENT FOLLOW UP with VICTORINA MILLER 08/01/2018 Last Documented On 9 9:23AM ; [facility] Atypical neuralgia PAIN MANAGEMENT FOLLOW UP wit h VICTORINA MILLER 06/15/2018 Last Documented On 9 2:25PM ; [facility] Chronic pain due to trauma PAIN MANAGEME NT FOLLOW UP with VICTORINA MILLER 06/15/2018 Last Documented On 9 2:25PM ; [facility] Complex regional pain syndro me type I of the left lower limb PAIN MANAGEMENT FOLLOW UP with VICTORINA MILLER 06/15/2018 Last Documented On 9 2:25PM ; [facility] Atypical neuralgia PAIN MANAGEMENT NEW CONSULT with VICTORINA MILLER 02/15/2018 Last Documented On 8 1:41PM ; [facility] Chronic pain due to trauma PAIN MANAGEME NT NEW CONSULT with VICTORINA MILLER 02/15/2018 Last Documented On 8 1:41PM ; [facility] Complex regional pain syndro me type I of the left lower limb PAIN MANAGEMENT NEW CONSULT with VICTORINA MILLER 02/15/2018 Last Documented On 8 1:41PM ; [facility] Medical Equipment - Implanted Devices Includes: Current and historical Devices No Medical Equipment Recorded Medications Includes: Current and historical Medications Current Medications (continue as prescribed) Naltrexone 3MG Oral Tablet 09/26/2018 Provider: Bronwyn MILLER Diagnosis: Complex regional pain syndrome I of left lower limb 1 po q AM Last Documented On 9 9:48AM By VICTORINA MILLER ; [facility] Naltrexone 4.5MG Oral Tablet 09/26/2018 Provider: VICTORINA BURKS Diagnosis: Complex regional pain syndrome I of left lower limb 1 po q AM Last Documented On 9 9:48AM By VICTORINA MILLER ; [facility] LORazepam 0.5MG Oral Tablet 08/01/2018 Provider: Diagnosis: Last Documented On 08/01/2018 8:51AM By Alicia Domínguez CMA ; [facility] Naltrexone 1.5MG Oral Tablet 08/01/2018 Provider: VICTORINA BURKS Diagnosis: Complex regional pain syndrome I of left lower limb One tablet daily Last Documented On 9 9:23AM By VICTORINA MILLER ; [facility] Past Medications on file BusPIRone HCl 10MG Oral Tablet 02/15/2018 - 08/01/2018 Provider: Diagnosis: 1 tab BID Last Documented On 08/01/2018 8:49AM By Alicia Domínguez CMA ; [facility] Hydrocodone-Acetaminophen 7.5-325MG Oral Tablet 02/15/2018 - 06/15/2018 Provider: Diagnosis: 2- 3 times daily as needed Last Documented On 9 11:47AM By Alicia Domínguez CMA ; [facility] Lyrica 150MG Oral Capsule, conventional 02/15/2018 - 06/15/2018 Provider: VICTORINA MILLER Diagnosis: 1 CAPSULE TWO TIMES A DAY Last Documented On 9 11:47AM By Alicia Domínguez CMA ; [facility] Lyrica 75MG Oral Capsule, conventional 02/15/2018 - 06/15/2018 Provider: VICTORINA MILLER Diagnosis: 1 po qhs x 7 days, 1 po BID x 7 days Last Documented On 9 11:47AM By Alicia Domínguez CMA ; [facility] Medications Administered Includes: Administered Medications in patient's chart No Administered Medications Recorded Results Includes: Results from 05/31/2023 through 05/31/2024 No Results Recorded For Specified Dates History of Present Illness History of Present Illness not supported for this document type No History of Present Illness Recorded Social History Description Last Updated Cigarette smoking 1 pack daily for 35 ye ars 02/15/2018 Last Documented On 8 1:41PM ; [facility] 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 Last Documented On 8 1:41PM ; [facility] Using marijuana 02/15/2018 Last Documented On 8 1:41PM ; [facility] Alcohol 6-12 a month 02/15/2018 Last Documented On 8 1:41PM ; [facility] 02/15/2018 Last Documented On 8 1:41PM ; [facility] Smoking status : Current everyday smoker 02/15/2018 Last Documented On 8 1:41PM ; [facility] Procedures and Surgical History Surgical History Last Updated History of tubal ligation 1986 8 Last Documented On 8 1:41PM ; [facility] Medical History Includes: Medical History in patient's chart Description Last Updated Surgery C-Sections- 1981,198 6,1986 ~Left Shoulder surgery- 2015 ~Gallbladder- 2015 ~Dilation and Curettage- 198302/15/2018 Last Documented On 8 1:41PM ; [facility] 1 miscarriage(s) 02/15/2018 Last Documented On 8 1:41PM ; [facility] Previously 4 time(s) 02/15/2018 Last Documented On 8 1:41PM ; [facility] Exposure airborne chemical particulate 1 04/17/2017 Last Documented On 8 1:41PM ; [facility] Exposure to dust 02/15/2018 Last Documented On 8 1:41PM ; [facility] Exposure to fumes 02/15/2018 Last Documented On 8 1:41PM ; [facility] Family History Includes: Family History in patient's chart Description Last Updated Father -Asthma 02/15/2018 Last Documented On 8 1:41PM ; [facility] Mother -Hypertensive Disorde r, Hypercholesterolemia, Diabetes, Osteoporosis 02/15/2018 Last Documented On 8 1:41PM ; [facility] Family history of cancer 02/15/2018 Last Documented On 8 1:41PM ; [facility] Family history of heart disease 02/16/20 18 Last Documented On 8 1:41PM ; [facility] Review of Systems Review of Systems not supported for this document type No Review of Systems Recorded Mental Status Description Oriented to time, place, and person Functional Status No Functional Status Recorded Physical Exam Physical Exam not supported for this document type No Physical Exam Recorded Allergies Includes: Active, inactive, and resolved Allergies Substance Type Reaction Onset Date Resolved Date Statu s Morphine Sulfate Allergy Skin Rashes / E ruption of skin 02/15/2018 Active Last Documented On 9 9:37AM ; [facility] Dilaudid Allergy 02/15/2018 Active Last Documented On 9 9:37AM ; [facility] Insurance Includes: Active Insurance Policies Plan Name Member ID Group # Subscriber Relationship Effect destinee Dates - [facility] [id number] DELIA Atkinson Clinical Notes Includes: Signed Clinical Notes starting from 04/30/2022 No Clinical Notes Recorded
--- OUTSIDE RECORDS SUMMARY | 2024-05-31 09:23 | XMS_ITS | Clinical Summary ---
Author Organization [facility] Address [address] [place] [id number] Care Team Providers Care Flooring Sales Manager Name Role Phone Unavailable Primary Care Provider Unavailabl e Allergies Active Allergy Reactions Criticality Noted Date Comments Hydromorphone Nausea Only,Unknown,Vomiting Low 08/21/2015 Severe n/v Severe n/v Ibuprofen Nausea Only,Nausea a nd Vomiting,Other (see comment),Palpitations Low 08/21/2015 Stomach pain Stomach pain Stomach pain Morphine Rash,Swelling,Unknown Medium 08/21/2015 IV morphine caused rash and swelling in arm IV morphine caused rash and swelling in arm IV morphine caused rash and swelling in arm Naproxen Nausea Only,Nausea a nd Vomiting,Other (see comment) Low 08/21/2015 Stomach pain Stomach pain Stomach pain Tramadol Vomiting 03/12/2019 Medications ALPRAZolam 0.5 MG tablet Take 0.5 mg by mouth 2 (two) times daily as needed for Anxiety (hasn't had recently). 1 11/21/2018 Active tizanidine 2 MG tablet Take 2 mg by mouth every 6 (six) hours as needed (back spasms). Active Active Problems Problem Noted Date Diagnosed Date Carpal tunnel syndrome on both sides 03/12/2019 Neck pain 03/12/2019 Family History Medical History Relation Comments COPD Father Diabetes Mother Heart Disease Mother Relation Status Comments Father Mother Social History Tobacco Use Types Packs/Day Years Used Date Smoking Tobacco: Every Day Cigarettes 1 40 Smokeless Tobacco: Never Alcohol Use Standard Drinks/Week Comments Yes 0 (1 standard drink = 0.6 oz pur e alcohol) rarely Comments Unknown Sex and Gender Information Value Date Recorded Sex Assigned at Not on file Legal Sex Female 9:26 PM CDT Gender Identity Not on file Sexual Orientation Not on file Last Filed Vital Signs Vital Sign Reading Time Taken Comments Blood Pressure 113/63 05/15/2019 10:23 AM ICT SALES REPRESENTATIVE Pulse 81 05/15/2019 10:23 AM ICT SALES REPRESENTATIVE Temperature 36.8 C (98.2 F) 05/15/2019 9:30 AM ICT SALES REPRESENTATIVE Respiratory Rate 16 05/15/2019 10:23 AM ICT SALES REPRESENTATIVE Oxygen Saturation 98% 05/15/2019 10:23 AM ICT SALES REPRESENTATIVE Inhaled Oxygen Concentration - - Weight 79.4 kg (175 lb) 05/15/2019 6:45 AM ICT SALES REPRESENTATIVE Height 160 cm (5' 3 ) 05/15/2019 6:45 AM ICT SALES REPRESENTATIVE Body Mass Index 31 05/15/2019 6:45 AM ICT SALES REPRESENTATIVE Plan of Treatment Health Maintenance Due Date Last Done Comments Cervical Cancer Screening Pa p Smear (Age 30 to 64) Every 3 Years 1965 Colorectal Cancer Screening Colonoscopy (10 Years) 1965 Annual Physical 1968 Pneumococcal Vaccine: Pediat rics (0 to 5 Years) and At-Risk Patients (6 to 64 Years) (1 of 2 - PCV) 1971 Hepatitis C 1983 DTaP, Tdap and Td Vaccines ( 1 - Tdap) 1984 Hepatitis B Vaccines (1 of 3 - 19+ 3-dose series) 1984 Cervical Cancer Screening Pa p with HPV Testing (Age 30 to 64) Every 5 Years 1995 Cervical Cancer Screening with HPV 1995 Mammogram Screening 2005 Zoster Vaccines (1 of 2) 2015 COVID-19 Vaccine (2023-2 5 season) 2023 Influenza Adult (#1) 2024 Meningococcal B Vaccine Aged Out No l onger eligible based on patient's age to complete this topic Meningococcal Vaccine Aged Out No momo marcel eligible based on patient's age to complete this topic RSV Immunizations Under 20 Months Aged Out No longer eligible based on patient's age to complete this topic Insurance
--- OUTSIDE RECORDS SUMMARY | 2024-05-31 09:23 | XMS_ITS | Clinical Summary ---
Author Organization [facility] Address [address] [place] [address] Care Team Providers Care Engineering Teacher Name Role Phone No, Physician Primary Care Provider [phone] Ronit Baez THERAPEUTIC RECREATION ASSISTANT Unavailable [phone] Allergies Active Allergy Reactions Criticality Noted Date Comments Hydrocodone-Acetaminophe n Hydromorphone Hydromorphone Hcl Nausea Only,Vomiting Low 08/21/19 16 Severe n/v Ibuprofen Nausea Only,Other (See comments) Low 08/21/2015 Stomach pain Morphine Rash,Swelling Medium 08/21/2015 IV morphine caused rash and swelling in arm Morphine Unknown 08/25/2019 Naproxen Sodium Nausea Only,Other (See comments) Low 08/21/2015 Stomach pain Medications methylPREDNISol one (MEDROL, MIRIAM,) 4 mg tablet follow package directions 21 tablet 7 Active naproxen (NAPROSYN,ALEVE ) 500 mg tablet Take 1 tablet (500 mg total) by mouth 2 (two) times a day with meals. 30 tablet 8 Active gabapentin (NEURONTIN) 300 mg capsule Take 1 capsule (300 mg total) by mouth 3 (three) times a day. 60 capsule 8 Active HYDROcodone-dallin taminophen (NORCO) 7.5-325 mg per tabletIndicatio ns:Pain,written Rx given to pt at appt Take 1 tablet every 6 hours as needed for pain 30 tablet 8 Active HYDROcodone-dallin taminophen (NORCO) 5-325 mg per tabletIndicatio ns:Pain,pt picked up rx in office Take 1 tablet every 6 hours as needed for pain 30 tablet 8 Active HYDROcodone-dallin taminophen (NORCO) 5-325 mg per tabletIndicatio ns:Pain Take 1 tablet every 6 hours as needed for pain 40 tablet 8 Active aspirin 81 mg chewable tablet Take 1 tablet (81 mg total) by mouth daily 30 tablet 0 Active atorvastatin (LIPITOR) 80 mg tablet Take 1 tablet (80 mg total) by mouth nightly 30 tablet 11 0 Active ticagrelor (BRILINTA) 90 mg tablet Take 1 tablet (90 mg total) by mouth 2 (two) times a day 0 Active Active Problems Problem Noted Date Diagnosed Date CVA with Mechanical Thrombectomy TICI 2c, Stent of L ICA 08/27/2019 Shoulder pain 08/18/2015 Overview (07/17/2016): Shoulder pain Knee pain 07/29/2014 Overview (07/17/2016): Knee pain Current smoker 07/29/2014 Overview (07/17/2016): Smoker Surgical History Surgery Date Site/Laterality Comments CHOLECYSTECTOMY Medical History Medical History Date Comments Hx Other Medical Left knee anter ior mass excision (sebaceous cyst); Comments: YOVANI 08/26/2014 - Hx Other Medical Left AC resecti on with anterior acromioplasty/harvey; Comments: YOVANI 09/15/2015 - Tremor, essential Family History Medical History Relation Name Comments COPD Father COPD; Other Mother at age 66 from CHF with history of diabetes and obesity.; Relation Name Status Comments Father Mother Social History Tobacco Use Types Packs/Day Years Used Date Smoking Tobacco: Unknown Smokeless Tobacco: Never Tobacco Cessation:Counseling Given: Yes Comments:Education provided to patient, but patient is mute at this time PHQ-2 Answer Date Recorded PHQ-2 Total Score (If total score is 3 or more points, staff should administer the PHQ-9) 2 08/29/2019 Comments Unknown Sex and Gender Information Value Date Recorded Sex Assigned at Not on file Legal 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:53 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 Gender Identity Not on file Sexual Orientation Not on file Obstetrics History Last Filed Vital Signs Vital Sign Reading Time Taken Comments Blood Pressure 97/50 09/04/2019 4:10 PM CDT Pulse 66 09/04/2019 4:10 PM CDT Temperature 37 C (98.6 F) 09/04/2019 4:10 PM CDT Respiratory Rate 20 09/04/2019 4:10 PM CDT Oxygen Saturation 96% 09/04/2019 4:10 PM CDT Inhaled Oxygen Concentration - - Weight 88.7 kg (195 lb 8.8 oz) 08/26/2019 5:00 A M CDT Height 160 cm (5' 2.99 ) 08/27/2019 9:38 AM CDT Body Mass Index 34.65 08/26/2019 5:00 AM CDT Plan of Treatment Health Maintenance Due Date Last Done Comments Breast Cancer Screening-Mammogram 1965 Cervical Cancer Screening 1965 Colon Cancer Screening-Colonoscopy 1965 Hepatitis C Screening 1965 DTaP/Tdap/Td Vaccine (1 - Tdap) 1976 Hepatitis B Screening 1983 Regular Well Visit/Exam 18-64 1983 Zoster Vaccine (1 of 2) 2015 Depression Screening 08/24/2020 08/25/2019 Influenza Vaccine (#1) 2023 Pneumococcal vaccine <65 Aged Out No longer eligible based on patient's age to complete this topic Medical Devices Implanted Type Area Direct Casting Operator Device Identifier Shelf Expiration Date Model / Serial / Lot Med[employer]onic Inc [id number] Protege Exprt Gps 9mm 6fr 30mm 135cm Rapid Exchange Self Expand - [id number] Implanted:Qty: 1 on 08/25/2019 at [facility] [employer] 01/20/2020 [id number] / / [id number] [employer] [id number] Device Closure Angio-Seal Vip Bondek-Plus Polyglyd L70 Cm Od6 Fr Odsec.035 In Vascular - [id number] Implanted:Qty: 1 on 08/25/2019 at [facility] [employer] 01/09/2020 [id number] / / [id number] Explanted Type Area Direct Casting Operator Device Identifier Shelf Expiration Date Model / Serial / Lot Freddy Neurovascular [id number] Transend .014in 205cm 2cm Floppy Radiopaque Shapeable Tip - [id number] Explanted:Qty: 1 on 08/25/2019 at [facility] [employer] Neurovascular [id number] / / Stent Vasc 50mm 4mm Solitaire Parametric 10mm Space 3-1 - [id number] Explanted:Qty: 1 on 08/25/2019 at [facility] [employer] [id number] / / Insurance Advance Directives For more information, please contact: [phone] * Full Code (Latest Code Status on File) Date Activated Date Inactivated Comments 08/25/2019 2:13 PM 09/04/2019 10:58 PM * Full Code Date Activated Date Inactivated Comments 08/25/2019 2:03 PM 08/25/2019 2:13 PM Care Teams Engineering Teacher Relationship Specialty Start Date End Date No, Physician PCP - General 08/25/19 Ronit Baez NP 08/25/19
--- OUTSIDE RECORDS SUMMARY | 2024-05-31 09:23 | XMS_ITS | Referral Summary ---
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[employer] Gender Identity Not on file Sexual Orientation [...] 08/26/2019 5:00 AM CDT Plan of Treatment Not on file Medical Devices Implanted Type Area Abrasive Grinder Device Identifier Shelf Expiration Date Model / Serial / Lot Med[employer]onic Inc [id number] Protege Exprt Gps 9mm 6fr 30mm 135cm Rapid Exchange Self Expand - [id number] Implanted:Qty: 1 on 08/25/2019 at [facility] Med[employer]onic Inc 01/20/2020 [id number] / / [id number] Daig Samir [id number] Device Closure Angio-Seal Vip Bondek-Plus Polyglyd L70 Cm Od6 Fr Odsec.035 In Vascular - [id number] Implanted:Qty: 1 on 08/25/2019 at [facility] Daig Samir/[employer] 01/09/2020 [id number] / / [id number] Explanted Type Area Abrasive Grinder Device Identifier Shelf Expiration Date Model / Serial / Lot Freddy Neurovascular [id number] Transend .014in 205cm 2cm Floppy Radiopaque Shapeable Tip - [id number] Explanted:Qty: 1 on 08/25/2019 at [facility] [employer] Neurovascular [id number] / / Stent Vasc 50mm 4mm Solitaire Parametric 10mm Space 3-1 - [id number] Explanted:Qty: 1 on 08/25/2019 at [facility] Med[employer] Inc [id number] / / Insurance Advance Directives For more information, please contact: [phone] * Full Code (Latest Code Status on File) Date Activated Date Inactivated Comments 08/25/2019 2:13 PM 09/04/2019 10:58 PM * Full Code Date Activated Date Inactivated Comments 08/25/2019 2:03 PM 08/25/2019 2:13 PM Care Teams Oim Architect Relationship Specialty Start Date End Date No, Physician PCP - General 08/25/19 Ronit Baez NP 08/25/19
--- OUTSIDE RECORDS SUMMARY | 2024-05-31 09:23 | XMS_ITS | Clinical Summary ---
Author Organization [facility] Address [address] [place] [address] Phone Care Team Providers Care Cement Mason Name Role Phone YAA PRASAD, MARIAM Unavailable Unavailable Reason for Visit and Chief Complaint The Chief Complaint is: Pt is here today to discuss getting an injection Plan of Treatment Referrals To Diagnosis Pain Management [address] [address] - Complex regional pain syndrome I of left lower limb Note: consent lumbar sympath etic nerve block Last Documented On 9 8:22AM ; [facility] Pain Management [address] [address] - Complex regional pain syndrome I of left lower limb Note: consent for lumbar sym pathetic nerve blockDr ivelisse Last Documented On 9 4:15PM ; [facility] Assessments Includes: Assessments from this encounter Findings - 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, unspecified] - Last Documented On 06/22/2018 2:25PM ; [facility] - Complex regional pain syndrome type I of the left lower limb [G90.522 - Complex regional pain syndrome I of left lower limb] - Last Documented On 06/22/2018 2:25PM ; [facility] - Chronic pain due to trauma [G89.21 - Chronic pain due to trauma] - Last Documented On 06/22/2018 2:25PM ; [facility] Medical Equipment - Implanted Devices Includes: Current Devices No Medical Equipment Recorded Medications Includes: Medications discussed during this encounter and other current Medications Discontinued / Stopped on this date on 02/15/2018 Hydrocodone-Acetaminophen 7.5-325MG Oral Tablet Provider: Diagnosis: Last Documented On 9 11:47AM By Alicia Domínguez CMA ; [facility] Lyrica 150MG Oral Capsule, conventional P rovider: VICTORINA FUENTES-BC Diagnosis: Last Documented On 9 11:47AM By Alicia Domínguez CMA ; [facility] Lyrica 75MG Oral Capsule, conventional Pr ovider: VICTORINA FUENTES-BC Diagnosis: Last Documented On 9 11:47AM By Alicia Domínguez CMA ; [facility] Current Medications (continue as prescribed) Naltrexone 3MG Oral Tablet 09/26/2018 Provider: Bronwyn MILLER Diagnosis: Complex regional pain syndrome I of left lower limb 1 po q AM Last Documented On 9 9:48AM By VICTORINA MILLER ; [facility] Naltrexone 4.5MG Oral Tablet 09/26/2018 Provider: VICTORINA BURKS Diagnosis: Complex regional pain syndrome I of left lower limb 1 po q AM Last Documented On 9 9:48AM By VICTORINA MILLER ; [facility] LORazepam 0.5MG Oral Tablet 08/01/2018 Provider: Diagnosis: Last Documented On 08/01/2018 8:51AM By Alicia Domínguez CMA ; [facility] Naltrexone 1.5MG Oral Tablet 08/01/2018 Provider: VICTORINA BURKS Diagnosis: Complex regional pain syndrome I of left lower limb One tablet daily Last Documented On 9 9:23AM By VICTORINA MILLER ; [facility] Medications Administered Includes: Administered Medications from this encounter No Administered Medications Recorded Vital Signs Includes: Vital Signs from this encounter Vital Name 06/15/2018 11:44A Blood Pressure Sitting L 104/66 BP Cuff Size Large Pulse Rate-Sitting (bpm) 82 Pulse Rhythm Regular Respiration Rate (breaths/min) 20 Height (in) 63 Weight (lb) 180 Body Mass Index (kg/m2) 31.9 Body Surface Area (m2) 1.8 Pain Level 7 Last Documented: On 06/15/2018 11:49A M ; [facility] Results Includes: Results discussed during this encounter No Results Recorded For Specified Dates History of Present Illness Includes: History of Present Illness from this encounter HPI DELIA FLORES is a 53 year old female. Patient presents in follow up. She's not been seen in 4 months stating she has had alot of life issues. Pain is in the left lower extremity pain since July. There was trauma to the left leg. The leg swells, gets discolored and is painful even with light touch of clothing. Swelling worsens when up and active for any amount of time. Lyrica was started, but she has not taken it routinely. She is hesitant to take medication daily. We discussed she may need to do this routinely to control symptoms. She would like to try the sympathetic nerve block. Therapy was completed a couple of months ago and helped with range of motion, but not pain. Gabapentin caused seizure activity and was stopped. NSAIDS cause severe GI irritation. Tylenol helps minimally. - Medication list reviewed with patient - Prescription Drug Monitoring Program website checked. - Last dose of medication? 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/2018 Last Documented On 9 11:44AM ; [facility] Using marijuana 02/15/2018 Last Documented On 9 11:44AM ; [facility] Alcohol 6-12 a month 02/15/2018 Last Documented On 9 11:44AM ; [facility] 02/15/2018 Last Documented On 9 11:44AM ; [facility] Smoking status : Current everyday smoker 02/15/2018 Last Documented On 9 11:44AM ; [facility] Procedures and Surgical History Surgical History Last Updated History of tubal ligation 1986 8 Last Documented On 9 11:44AM ; [facility] Medical History Includes: Medical History addressed during this encounter Description Last Updated Surgery C-Sections- 1981,198 6,1986 ~Left Shoulder surgery- 2015 ~Gallbladder- 2016 ~Dilation and Curettage- 198302/15/2018 Last Documented On 9 11:44AM ; [facility] 1 miscarriage(s) 02/15/2018 Last Documented On 9 11:44AM ; [facility] Previously 4 time(s) 02/15/2018 Last Documented On 9 11:44AM ; [facility] Exposure airborne chemical particulate 1 04/17/2017 Last Documented On 9 11:44AM ; [facility] Exposure to dust 02/15/2018 Last Documented On 9 11:44AM ; [facility] Exposure to fumes 02/15/2018 Last Documented On 9 11:44AM ; [facility] Family History Includes: Family History addressed during this encounter Description Last Updated Father -Asthma 02/15/2018 Last Documented On 9 11:44AM ; [facility] Mother -Hypertensive Disorde r, Hypercholesterolemia, Diabetes, Osteoporosis 02/15/2018 Last Documented On 9 11:44AM ; [facility] Family history of cancer 02/15/2018 Last Documented On 9 11:44AM ; [facility] Family history of heart disease 02/16/20 18 Last Documented On 9 11:44AM ; [facility] Review of Systems Includes: Review of Systems [...] Active Last Documented On 9 9:37AM ; [facility] Dilaudid Allergy 02/15/2018 Active Last Documented On 9 9:37AM ; [facility] Encounters Encounter Provider Location Date Check-In Time Check-Out Time Diagnosis PAIN MANAGEMENT FOLLOW UP VICTORINA TUCKER [facility] 06/16/19 19 11:45AM 12:10PM Complex Regional Pain Syndrome Type I Lower Limb Left,Chronic Pain Due To Trauma,Neural macy Atypical Insurance Includes: Active Insurance Policies Plan Name Member ID Group # Subscriber Relationship Effect destinee Dates - [facility] [id number] DELIA FLORES Self Clinical Notes Includes: Clinical Notes from this encounter No Clinical Notes Recorded
--- OUTSIDE RECORDS SUMMARY | 2024-05-31 09:23 | XMS_ITS | Continuity of Care Document ---
Author Organization [facility] Address [address] [place] [place] [address] Phone Care Team Providers Care Keymodule Assembly Supervisor Name Role Phone Hussein Prieto MD Unavailable Unavailable Advance Directives Directive Yes / No Effective Date File Name No Information Encounters Encounter Description Practice Location Reason(s) For Visit Diagnoses Date Provider Providers Copied on Encounter [facility], [address] [place], [id number], [place] tel:[phone] [facility] No Information Conner Savage. [address] [facility] [place], [id number], [place]. tel:[phone] Family History Family Member Type Diagnosis Age At Onset No Information Payers Payer name Insurance type Covered constitution party ID Authoriza tion(s) No Information Social History Type Description Quantity Date Captured Comments Sex Female Smoking Status No Information Chief Complaint And Reason For Visit No Information Plan Of Treatment Date Type Action Status No Information History Of Present Illness Encounter Date Complaint History Of Prese nt Illness No Information Instructions Date Instruction Additional Infor mation No Information Assessments Type Assessment Date No Information
--- OUTSIDE RECORDS SUMMARY | 2024-05-31 09:23 | XMS_ITS | Clinical Summary ---
Author Organization [facility] Address [address] [place] [address] Phone Care Team Providers Care Plastic Products Sales Representative Name Role Phone MARIAM MON MD Unavailable Unavailable Reason for Visit and Chief Complaint The Chief Complaint is: Pt here for 1 wk f/u for block in lumbar spine. 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, unspecified] - Last Documented On 08/01/2018 9:23AM ; [facility] - Complex regional pain syndrome type I of the left lower limb [G90.522 - Complex regional pain syndrome I of left lower limb] - Last Documented On 08/01/2018 9:23AM ; [facility] - Chronic pain due to trauma [G89.21 - Chronic pain due to trauma] - Last Documented On 08/01/2018 9:23AM ; [facility] Medical Equipment - Implanted Devices Includes: Current Devices No Medical Equipment Recorded Medications Includes: Medications discussed during this encounter and other current Medications Discontinued / Stopped on this date on 02/15/2018 BusPIRone HCl 10MG Oral Tablet Provider: Diagnosis: Last Documented On 08/01/2018 8:49AM By Alicia Domínguez CMA ; [facility] New / Renewed during this visit VICTORINA MILLER on 08/01/2018 Naltrexone 1.5MG Oral Tablet Provider: VICTORINA BURKS 30 day supply: 30 tablet, 0 refills Diagnosis: Complex regional pain syndrome I of left lower limb One tablet daily Last Documented On 9 9:23AM By VICTORINA MILLER ; [facility] Current Medications (continue as prescribed) Naltrexone 3MG Oral Tablet 09/26/2018 Provider: Bronwyn MILLER Diagnosis: Complex regional pain syndrome I of left lower limb 1 po q AM Last Documented On 9 9:48AM By VICTORINA MILLER ; [facility] Naltrexone 4.5MG Oral Tablet 09/26/2018 Provider: VICTORINA BURKS Diagnosis: Complex regional pain syndrome I of left lower limb 1 po q AM Last Documented On 9 9:48AM By VICTORINA MILLER ; [facility] LORazepam 0.5MG Oral Tablet 08/01/2018 Provider: Diagnosis: Last Documented On 08/01/2018 8:51AM By Alicia Domínguez CMA ; [facility] Medications Administered Includes: Administered Medications from this encounter No Administered Medications Recorded Vital Signs Includes: Vital Signs from this encounter Vital Name 08/01/2018 08:47A Blood Pressure Sitting L 116/68 BP Cuff Size Large Pulse Rate-Sitting (bpm) 80 Pulse Rhythm Regular Respiration Rate (breaths/min) 20 Height (in) 63 Weight (lb) 177 Body Mass Index (kg/m2) 31.4 Body Surface Area (m2) 1.8 Pain Level 10 Last Documented: On 08/01/2018 8:52AM ; [facility] Results Includes: Results discussed during this encounter No Results Recorded For Specified Dates History of Present Illness Includes: History of Present Illness from this encounter FRANDY FLORES is a 53 year old female. Patient presents in follow up to a sympathetic nerve block. She reports no relief with the procedure. She complains of pain is in the left lower extremity pain for about a year after trauma to the left leg. The leg swells, gets discolored and is painful even with light touch of clothing. Swelling worsens when up and active for any amount of time. We discussed SCS trial, but it is not an option due to insurance. We also discussed low dose naltrexone, she is afraid of Lyrica and Gabapentin. She would like to try LDN. We discussed she may need to do [...] checked. - Last dose of medication? none - Last dose of medication? 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 Last Documented On 9 8:47AM ; [facility] Using marijuana 02/15/2018 Last Documented On 9 8:47AM ; [facility] Alcohol 6-12 a month 02/15/2018 Last Documented On 9 8:47AM ; [facility] 02/15/2018 Last Documented On 9 8:47AM ; [facility] Smoking status : Current everyday smoker 02/15/2018 Last Documented On 9 8:47AM ; [facility] Medical History Includes: Medical History addressed during [...] Active Last Documented On 9 9:37AM ; [facility] Dilaudid Allergy 02/15/2018 Active Last Documented On 9 9:37AM ; [facility] Encounters Encounter Provider Location Date Check-In Time Check-Out Time Diagnosis PAIN MANAGEMENT FOLLOW UP VICTORINA TUCKER [facility] 08/02/19 19 8:45AM 9:24AM Complex Regional Pain Syndrome Type I Lower Limb Left,Chronic Pain Due To Trauma,Neural macy Atypical Insurance Includes: Active Insurance Policies Plan Name Member ID Group # Subscriber Relationship Effect destinee Dates 1 - [facility] [id number] DELIA FLORES Self Clinical Notes Includes: Clinical Notes from this encounter No Clinical Notes Recorded
--- OUTSIDE RECORDS SUMMARY | 2024-05-31 09:23 | XMS_ITS | Clinical Summary ---
Author Organization [facility] Address [address] [place] [address] Phone Care Team Providers Care Gang Knife Fish Chopper Name Role Phone Ronit Baez APRN Primary Care Provider [phone] Allergies Active Allergy Reactions Criticality Noted Date Comments Naproxen Sodium Nausea,Other (see Comments) 08/21/2015 Stomach pain Hydromorphone Hcl Nausea,Vomiting 08/21/2015 Severe n/v Ibuprofen Nausea,Other (see Comments) 08/21/2015 Stomach pain Morphine Rash,Swelling 08/21/2015 IV morphine caused rash and swelling in arm Medications propranolol (INDERAL) 20 MG Tablet Take 1 Tab by mouth 2 times daily. 60 Tab 1 8 Active Additional Information Patient not taking.Reported on 08/19/2017 topiramate (TOPAMAX) 25 MG Tablet Take 1 Tab by mouth 2 times daily. 180 Tab 3 8 Active omeprazole (PRILOSEC) 40 MG CAPSULE DELAYED RELEASE Take 1 Cap by mouth daily. 30 Cap 8 Active LORazepam (ATIVAN) 0.5 MG Tablet Take 0.5 mg by mouth 2 times daily. Active NALTREXONE HCL PO Take 3 mg by mouth daily. Active HYDROcodone-dallin taminophen (NORCO) 5-325 MG Tablet Take 1 Tab by mouth every 8 hours as needed for Moderate or more severe pain. 15 Tab 9 Active Family History Medical History Relation Name Comments Chronic Obstructive Pulmonary Disease Father Multiple Sclerosis Maternal Uncle Diabetes Mother Heart Attack Mother Hypertension Mother Relation Name Status Comments Father Maternal Uncle Mother Social History Tobacco Use Types Packs/Day Years Used Date Smoking Tobacco: Every Day Cigarettes 1 30 Smokeless Tobacco: Never Tobacco Cessation:Ready to Q uit: No Alcohol Use Standard Drinks/Week Comments Yes 0 (1 standard drink = 0.6 oz pur e alcohol) occasionally Comments No Sex and Gender Information Value Date Recorded Sex Assigned at Not on file Legal Sex Female 9:04 PM CDT Gender Identity Not on file Sexual Orientation Not on file Last Filed Vital Signs Vital Sign Reading Time Taken Comments Blood Pressure 106/71 11/07/2018 6:31 PM CDT Pulse 96 11/07/2018 6:31 PM CDT Temperature 36.9 C (98.4 F) 11/07/2018 4:46 PM CDT Respiratory Rate 18 11/07/2018 6:31 PM CDT Oxygen Saturation 99% 11/07/2018 6:31 PM CDT Inhaled Oxygen Concentration - - Weight 74.8 kg (165 lb) 11/07/2018 4:46 PM CDT Height 160 cm (5' 3 ) 11/07/2018 4:46 PM CDT Body Mass Index 29.23 11/07/2018 4:46 PM CDT Plan of Treatment Health Maintenance Due Date Last Done Comments Hepatitis C Virus (HCV) Screening 1965 TdaP Immunization 1965 Hepatitis B Immunization (1 of 3 - 19+ 3-dose series) 1984 Pap Smear 1986 Cervical Cancer Screening (CCS) 1995 HPV/Cotest 1995 Cologuard 2015 Immunochemical Fecal Occult Blood 2015 Mammogram 2015 Pneumococcal Immunization (5 0+ years) (1 of 1 - PCV) 2015 Zoster Immunization (1 of 2) 2015 Influenza Immunization (#1) 2023 SARS-COV-2 Immunization ( - season) 2023 Colonoscopy 08/04/2026 08/04/2016 Colorectal Cancer Screening 08/04/2026 Respiratory Syncytial Virus (RSV) Immunization (Adult) (1 - 1-dose 75+ series) 2040 08/04/2016 Meningococcal Immunization (ACWY) Aged Out No longer eligible based on patient's age to complete this topic Pneumococcal Immunization Combined Aged Out No longer eligible based on patient's age to complete this topic Rotavirus Immunization Aged Out No lo nger eligible based on patient's age to complete this topic Insurance MEDICAID [employer] Care Teams Gang Knife Fish Chopper Relationship Specialty Start Date End Date Ronit Baez APRN [address] [place] [address] PCP - General Family Medicine 04/01/16
== END 2024-05-31 09:10 | disposition home or self-care (01) ==
PROVIDERS: PCP Family Medicine; Visit Provider Podiatrist Foot & Ankle Surgery
DX: I73.9 Peripheral vascular disease, unspecified (principal)
CPT/HCPCS: 93922; 93925

== ENCOUNTER 2025-02-15 14:53 | Emergency (ER) | payer OTHER, SELFPAY ==
--- OUTSIDE RECORDS SUMMARY | 2025-02-15 14:55 | XMS_ITS | Clinical Summary ---
Author Organization [facility] Address [address] [place] [address] Care Team Providers Care Fur Feeder Name Role Phone Ronit Baez CHACE-FLEXIBLE SHAFT WINDER Primary Care Provider Source Comments [facility],non-owned Affiliates and Associated Physician Practices is amultiple site organization consisting of ambulatory clinics and hospital sitesin [place], [place], [place] and [place]. This disclosure is being madepursuant to the Care Everywhere program and may not contain all information available regarding this patient. Last updated 17.[facility] Allergies Active Allergy Reactions Criticality Noted Date Comments Hydromorphone Vomiting 01/01/2019 Ibuprofen Nausea and/or Vomiting,Palpitations Low 08/21/2015 Stomach pain Morphine Rash,Swelling Medium 08/21/2015 IV morphine caused rash and swelling in arm Naproxen Nausea and/or Vomiting Low 08/21/2015 Stomach pain Medications * Be aware that medications may not be up to date on this document. Alwaysverify current medications with the patient. busPIRone (BUSPAR) 30 MG tablet 04/06/2018 Active Evening [place]quitt Oil 1000 MG Take 1,000 mg by mouth once daily 90 capsule 3 05/25/2018 Active Diclofenac Sodium 1.6 % GEL Apply 1 tube to skin 3 times daily as needed 2.5 g 2 05/25/2018 Active ALPRAZolam (XANAX) 0.5 MG tablet TK 1 T PO BID PRN 1 11/21/2018 Active HYDROcodone-dallin taminophen (NORCO) 5-325 MG tablet TK 1 T [...] drink = 0.6 oz pur e alcohol) Comments No Sex and Gender Information Value Date Recorded Sex Assigned at Not on file Legal Sex Female 11:28 AM CDT Gender Identity Not on file Sexual Orientation Not on file Last Filed Vital Signs Vital Sign Reading Time Taken Comments Blood Pressure 137/80 01/01/2019 1:21 PM CDT Pulse 77 01/01/2019 1:21 PM CDT Temperature 36.9 C (98.4 F) 05/25/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 BUSINESS ADVISOR Respiratory Rate - - Oxygen Saturation 97% 05/25/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 BUSINESS ADVISOR Inhaled Oxygen Concentration - - Weight 80.7 kg (178 lb) 01/01/2019 1:21 PM CDT Height 160 cm (5' 3) 01/01/2019 1:21 PM CDT Body Mass Index [...] SCREENING 1965 LIPID TESTING 1965 MAMMOGRAM 1965 HIV SCREENING 1980 HEPATITIS C SCREENING 05/01/1983 DTAP/TDAP/TD VACCINES (1 - Tdap) 1984 HEPATITIS B VACCINE (1 of 3 - 19+ 3-dose series) 1984 PNEUMOCOCCAL VACCINE 50+ (1 of 1 - PCV) 2015 ZOSTER VACCINE (1 of 2) 2015 SCREENING FOR DIABETES 05/25/2018 DEPRESSION SCREENING 04/11/2024 COVID-19 VACCINE ( - 2023-2 5 season) 2024 INFLUENZA VACCINE (#1) 2024 HIB VACCINE Aged Out No longer eligi ble based on patient's age to complete this topic HPV VACCINE Aged Out No longer eligi ble based on patient's age to complete this topic MENINGOCOCCAL (Group B) VACC INE SHARED DECISION-MAKING Aged Out No longer eligibl e based on patient's age to complete this topic MENINGOCOCCAL GROUPS A/C/Y/W VACCINE Aged Out No longer eligible b ased on patient's age to complete this topic Insurance Care Teams Fur Feeder Relationship Specialty Start Date End Date Ronit Baez, MULTI SENSOR OPERATOR-FLEXIBLE SHAFT WINDER [address] [facility] [address] [place] [address] [phone] PCP - General 01/01/19
--- OUTSIDE RECORDS SUMMARY | 2025-02-15 14:55 | XMS_ITS | Clinical Summary ---
Author Organization [facility] Address [address] [place] [address] Phone Care Team Providers Care Machine Shop Worker Name Role Phone Ronit Baez APRN Primary Care Provider [phone] Allergies Active Allergy Reactions Criticality Noted Date [...] 4:46 PM CDT Height 160 cm (5' 3) 11/07/2018 4:46 PM CDT Body Mass Index 29.23 11/07/2018 4:46 PM CDT Plan of Treatment Health Maintenance Due Date Last Done Comments Hepatitis C Virus (HCV) Screening 1965 Mammogram 1965 TdaP Immunization 1965 Hepatitis B Immunization (1 of 3 - 19+ 3-dose series) 1984 Pap Smear 1986 Cervical Cancer Screening (CCS) 1995 HPV/Cotest 1995 Cologuard 2010 Immunochemical Fecal Occult Blood 2010 Pneumococcal Immunization (5 0+ years) (1 of 1 - PCV) 2015 Zoster Immunization (1 of 2) 2015 Influenza Immunization (#1) 2024 SARS-COV-2 Immunization (1 - season) 2024 Colonoscopy 08/04/2026 08/04/2016 Colorectal Cancer Screening 08/04/2026 Respiratory Syncytial Virus (RSV) Immunization (Adult) (1 - 1-dose 75+ series) 2040 Human Papillomavirus (HPV) Immunization Aged Out No longer eligible b ased on patient's age to complete this topic Meningococcal Immunization (ACWY) Aged Out No longer eligible based on patient's age to complete this topic Rotavirus Immunization Aged Out No lo nger eligible based on patient's age to complete this topic Insurance MEDICAID [employer] Care Teams Machine Shop Worker Relationship Specialty Start Date End Date Ronit Baez APRN [address] [place] [address] PCP - General Family Medicine 04/01/16
--- OUTSIDE RECORDS SUMMARY | 2025-02-15 14:55 | XMS_ITS | Clinical Summary ---
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 Unavailable Allergies Active Allergy Reactions Criticality Noted Date [...] needed for pain 40 tablet 8 Active atorvastatin (LIPITOR) 80 mg tablet Take 1 tablet (80 mg total) by mouth nightly 30 tablet 0 Active aspirin 81 mg chewable tablet Take 1 tablet (81 mg total) by mouth daily 30 tablet 5 07/03/19 26 Active clopidogreL (PLAVIX) 75 mg tablet Take 1 tablet (75 mg total) by mouth daily 30 tablet 5 07/03/19 26 Active Active Problems Problem Noted Date Diagnosed Date CVA with Mechanical Thrombectomy TICI 2c, Stent of L ICA 08/27/2019 Shoulder pain 08/18/2015 Overview (07/17/2016): Shoulder pain Knee pain 07/29/2014 Overview (07/17/2016): Knee pain Current smoker 07/29/2014 Overview (07/17/2016): Smoker Encounters Date Type Department Care Team Description 11/28/2024 Telephone [facility] Medicine Radiology, Interventional Radiology [address] [place] [address] Sharifa Mandujano, RN Appointment from Last 3 Months Surgical History Surgery Date Site/Laterality Comments CHOLECYSTECTOMY [...] staff should administer the PHQ-9) 2 08/29/2019 Personal Safety Answer Date Recorded Have you ever been in or are you currently in a harmful physical or emotional relationship or is someone making you feel afraid or unsafe? 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 Gender Identity Female 06/19/2024 9:39 AM CDT Sexual Orientation Straight 06/19/2024 9: 39 AM CDT Last Filed Vital Signs Vital Sign Reading Time Taken Comments Blood Pressure 108/80 07/02/2024 3:00 PM CDT Pulse 78 07/02/2024 3:00 PM CDT Temperature 36.9 C (98.4 F) 07/02/2024 9:49 AM CDT Respiratory Rate 16 07/02/2024 3:00 PM CDT Oxygen Saturation 93% 07/02/2024 3:00 PM CDT Inhaled Oxygen Concentration - - Weight 86.2 kg (190 lb) 07/02/2024 9:53 AM CDT Height 162.6 cm (5' 4) 07/02/2024 9:53 AM CDT Body Mass Index 32.61 07/02/2024 9:53 AM CDT Plan of Treatment Health Maintenance Due Date Last Done Comments Breast Cancer Screening-Mammogram 1965 Cervical Cancer Screening 1965 Colon Cancer Screening-Colonoscopy 1965 Hepatitis C Screening 1965 DTaP/Tdap/Td Vaccine (1 - Tdap) 1976 Hepatitis B Screening 1983 Regular Well Visit/Exam 18-64 1983 Zoster Vaccine (1 of 2) 2015 Depression Screening 08/24/2020 08/25/2019 Influenza Vaccine (#1) 2024 Pneumococcal vaccine <65 Aged Out No longer eligible based on patient's age to complete this topic Medical Devices Implanted Type Area Nurse Private Duty Device Identifier Shelf Expiration Date Model / Serial / Lot Med[employer]onic Inc Itca-1-32-135 Protege Exprt Gps 9mm 6fr 30mm 135cm Rapid Exchange Self Expand - [id number] Implanted:Qty: 1 on 08/25/2019 at [facility] [employer] Inc 01/20/2020 SECX-9 -30-1 35 / / [id number] Daig Samir [id number] Device Closure Angio-Seal Vip Bondek-Plus Polyglyd L70 Cm Od6 Fr Odsec.035 In Vascular - [id number] Implanted:Qty: 1 on 08/25/2019 at [facility] Daig Samir/[employer] 01/09/2020 [id number] / / [id number] [employer] Samir Angio-Seal Vip 6fr Closere Device [id number] - [id number] Implanted:Qty: 1 on 07/02/2024 at [facility] [employer] Samir 02/02/2025 [id number] / / [id number] Explanted Type Area Nurse Private Duty Device Identifier Shelf Expiration Date Model / Serial / Lot Freddy Neurovascular [id number] Transend .014in 205cm 2cm Floppy Radiopaque Shapeable Tip - [id number] Explanted:Qty: 1 on 08/25/2019 at [facility] Hiram Neurovascular [id number] / / Stent Vasc 50mm 4mm Solitaire Parametric 10mm Space 3-1 - [id number] Explanted:Qty: 1 on 08/25/2019 at [facility] [employer] SFR4-4-40- 10 / / Insurance Advance Directives For more information, please contact: [phone] * Full Code (Latest Code Status on File) Date Activated Date Inactivated Comments 07/02/2024 9:35 AM 07/03/2024 4:52 AM * Full Code Date Activated Date Inactivated Comments 08/25/2019 2:13 PM 09/04/2019 10:58 PM * Full Code Date Activated Date Inactivated Comments 08/25/2019 2:03 PM 08/25/2019 2:13 PM Care Teams Physician General Practice Relationship Specialty Start Date End Date No, Physician PCP - General 08/25/19 Ronit Baez NP 08/25/19
[2025-02-15 14:59] VITALS: BP 147/85; PULSE 80; RESP 16; TEMP 36; O2SAT 99
--- NOTE | 2025-02-15 15:29 | ED_ITS ---
HPI - Skin/Abscess/Foreign Bdy General Chief complaint: Skin/Abscess/Foreign Body Stated complaint: break out on forehead Time Seen by Provider: 02/15/25 15:29 Source: patient, RN notes reviewed and old records reviewed Mode of arrival: ambulatory Limitations: no limitations History of Present Illness HPI narrative: 59 year old female present via wheelchair with friend with reported rash along her hairline at forehead for the past 3 days. Patient has patches of rash with central clearing along forehead at hairline. Patient reports no pain to rash area voices minimal itching to rash area. Patient has not tried any OTC medications to rash. MD complaint: rash Onset (ago): day(s) (3) Location: face (along forehead at hairline) Severity: moderate Treatments prior to arrival: none Related Data Allergies Allergy/AdvReac Type Severity Reaction Status Date / Time hydromorphone Allergy Intermediate rash Verified 02/10/23 10:41 morphine Allergy Intermediate rash Verified 02/10/23 10:41 ibuprofen Allergy Nausea Verified 02/10/23 10:41 naproxen Allergy Nausea Verified 02/10/23 10:41 tramadol Allergy Nausea Verified 02/10/23 10:41 Review of Systems Review of Systems: CONSTITUTIONAL: Denies fever, chills, or sweats. CARDIOVASCULAR: Denies chest pain, palpitations, or edema. RESPIRATORY: Denies cough or dyspnea. SKIN: Reports 3 day history of rash along forehead at hairline for the past 3 days no pain to site appear to be ringworm with red circular patches with central clearing slightly itchy MUSCULOSKELETAL: Denies joint pain or myalgia. NEUROLOGIC: Denies headache, numbness, or weakness. All systems reviewed & are unremarkable except as noted in HPI and below PMFSH Past Medical History Medical History (Updated 02/16/25 @ 19:32 by Linda Bailey APRN) Femur fracture, right with ORIF CVA (cerebral vascular accident) RSD (reflex sympathetic dystrophy) Bilateral carpal tunnel syndrome PTSD (post-traumatic stress disorder) Anxiety Allergies Surgical History Surgical History History of carpal tunnel surgery H/O section History of cholecystectomy H/O shoulder surgery Family History Family History Mother Diabetes mellitus Father COPD (chronic obstructive pulmonary disease) Emphysema lung Social History Social History Years smoked: 30 Alcohol intake: current Drinks per week: 2 Alcohol use details: Yoder Substance use: never Substance use type: does not use Lack of Transportation: YES Lack of Food: Sometimes True Current Housing: I Have Housing Concerned About Future Housing: No Difficulty Paying Gas/Electric Bills: No Difficulty Paying for Meds: No Currently Unemployed: No Education: High School Diploma/GED Difficulty w/ Childcare or Family Care: No Living arrangements: with friend(s) Gender identity (if verbalized by the patient): Female Agree to blood products: Yes Comments At time of signature, agree with nursing past medical, surgical, social and family history. There is no relevant family history pertinent to the presenting complaint Exam Narrative: GENERAL:- chronic ill appearing, well-nourished, and in no acute distress. HEAD: Normocephalic, atraumatic. EYES: PERRLA, conjunctivae clear, and EOMI. ENT: Mucous membranes moist. Oropharynx without edema, erythema or lesions. TM's normal throat pink with no swelling noted NECK: Supple. No lymphadenopathy CHEST: Decreased to auscultation. No respiratory distress. no acute cough SAO2 99% on room air HEART: Regular rate and rhythm. SKIN: Warm, dry.? Patches of red scaly lesions along forehead at hairline with central clearing of lesion, are somewhat itchy no pain, for past 3 days NEURO:? Alert and oriented x3. has had previous CVA with right sided weakness PSYCH: Normal mood and affect Course Course Emergency Course: Patient is aware of diagnosis, understands and agrees to treatment plan.? Anticipatory guidance given.? Patient agrees to follow-up as directed and is aware of reasons to seek care at the emergency department. Portions of this record may have been created with voice recognition software Level of Care: Express Care Visit Vital Signs Vital signs: Vital Signs Temperature 36.0 C L 02/15/25 14:59 Pulse Rate 80 02/15/25 14:59 Respiratory Rate 16 02/15/25 14:59 Blood Pressure 147/85 H 02/15/25 14:59 Pulse Oximetry 99 02/15/25 14:59 Oxygen Delivery Room Air 02/15/25 14:59 Temperature 36.0 C L 02/15/25 14:59 Pulse Rate 80 02/15/25 14:59 Respiratory Rate 16 02/15/25 14:59 Blood Pressure 147/85 H 02/15/25 14:59 Pulse Oximetry 99 02/15/25 14:59 Oxygen Delivery Room Air 02/15/25 14:59 Reviewed MDM - Skin/Abscess/Foreign Bdy MDM Narrative Medical decision making narrative: Does not appear at this time to be erythema multiforme, bullous, SJS, TEN; no evidence at this time to suggest RMSF, endocarditis or Lyme disease; patient looks well, nontoxic and is tolerating oral intake; no neurologic signs or symptoms; no headache, photophobia or neck pain; afebrile; appropriate for initial outpatient treatment; discussed the importance of follow-up, patient agrees; question, viral exanthema, contact dermatitis, allergic dermatitis, eczema, urticaria, [ xx ]. No soft palate or uvula edema, no tongue, lip edema or other mucosal involvement, no respiratory compromise, no stridor, no wheezing, no wheezing, no history of syncope, no hypotension, no nausea, vomiting, or diarrhea.? Instructed patient to go to nearest ER immediately for any worsening symptoms including but not limited to: fever, spreading rash, pain, sore throat, headache, dizziness, chest pain, trouble breathing, or any symptoms concerning to the patient. Differential Diagnosis Differential diagnosis: Likely abscess of skin or subcutaneous tissue, dermatophytosis, contact dermatitis and other (corporis capitas) Medical Records Attestation: I reviewed the patient's medical records. Critical Care Time Critical Care Time Critical Care Time: No Discharge Plan Discharge Clinical Impression: Ringworm of the scalp, Facial ringworm Patient Disposition: Home Condition: Stable Instructions: Antibiotic Form, Tinea Corporis (ED) Additional Instructions: wash facial area with antibacterial soap use ketoconazole shampoo 2 times per week watch for increasing infection--redness, swelling, drainage Tylenol or ibuprofen for any fever pain follow up with PCP in 7-10 days for a wound check recheck if develop fever, chills, increasing symptom Go to the ER if your symptoms become worse of if ANY new symptoms Oral medication as ordered 1 tab daily up to 6 weeks eat with high fat content If your symptoms persist, change or worsen significantly before you can contact your personal physician then please, without delay, go to the emergency department for further evaluation. Follow-up with PCP in 7-10 days or sooner if needed Follow up with PCP soon in regards to your blood pressure which is elevated above threshold for referral. Blood pressure above 120/80 may indicate pre- hypertension.147/85 Patient Language: Citizen Of [place] Prescriptions: New ketoconazole 2 % shampoo 1 applic topical 2XW Qty: 120 0RF griseofulvin microsize 500 mg tablet 500 mg PO DAILY Qty: 45 0RF Rx Instructions: must administer with high-fat meal or food Follow-up/Referrals: Angelito Robles MD [Primary Care Provider, [facility]] Time of Disposition: 15:58 Quality Gemma Coma Scale Eyes: Open Verbal: Oriented and Alert Motor: Follows Commands Gemma Coma Total Score: 15
== END 2025-02-15 16:05 | disposition home or self-care (01) ==
PROVIDERS: Emergency Provider Registered Nurse; PCP Family Medicine
DX: B35.0 Tinea barbae and tinea capitis (principal); B35.8 Other dermatophytoses; Z86.73 Personal history of transient ischemic attack (TIA), and cerebral infarction without residual deficits; Z87.891 Personal history of nicotine dependence
CPT/HCPCS: 99213; G0463